=== PATIENT | female | born 1950 | race Caucasian/White ===

== ENCOUNTER → 2017-08-17 13:05 | Outpatient (CLI) | payer MEDICARE, SELFPAY ==
--- NOTE | 2017-08-17 13:09 | CT_ITS ---
STUDY: CT CHEST WITHOUT CONTRAST REASON FOR EXAM: Female, 67 years old. Lung nodule RADIATION DOSAGE (If Supplied By Facility): CTDIvol = ( 11.65 ) mGy, DLP = ( 381.47 ) mGycm TECHNIQUE: Transaxial imaging was performed without the administration of intravenous contrast material. Individualized dose optimization techniques were used for this CT. COMPARISON: None. FINDINGS: The lungs are expanded. There is minimal peripheral interstitial prominence bilaterally. There are nonspecific 2 mm or less peripheral nodular densities in the left lung. Mild right apical scarring.. Normal heart and pericardium. Normal mediastinum. Normal hilar regions. Normal unenhanced pulmonary arteries. Slightly calcified aorta arch and descending thoracic aorta. Mild degenerative vertebral changes. There is no demonstrated abnormality of the visualized upper abdomen. CT/Chest without Contrast IMPRESSION: There are several nonspecific 2 mm or less peripheral nodular densities in the left lung. Mild right apical scarring. Minimal peripheral interstitial prominence. No consolidation. Electronically Signed: Law Tellez DO at 23:18 EST Tel [phone], Service support ,
== END ==
PROVIDERS: Family Provider Internal Medicine; PCP Internal Medicine; Visit Provider Internal Medicine Pulmonary Disease
DX: R91.1 Solitary pulmonary nodule (principal)
CPT/HCPCS: 71250

== ENCOUNTER 2017-09-20 17:37 | Observation (INO) | payer MEDICARE, SELFPAY ==
[2017-09-20] VITALS (8 sets, daily range): BP systolic 139–161; BP diastolic 71–95; PULSE 70–86; RESP 14–20; TEMP 36.6–36.9; O2SAT 93–96; BMI 32.1; BMI 31.8
--- NOTE | 2017-09-20 18:12 | EKG12_ITS ---
Test Reason : CP Blood Pressure : / mmHG Vent. Rate : 082 BPM Atrial Rate : 082 BPM P-R Int : 124 ms QRS Dur : 064 ms QT Int : 348 ms P-R-T Axes : 077 001 065 degrees QTc Int : 406 ms Sinus rhythm with Premature ventricular complexes or Fusion complexes Low voltage QRS Nonspecific ST abnormality Abnormal ECG Confirmed by GAUTAM CLEARY, CRUZ ([id number]), editor trade journal ZHANG TAM ([id number]) on 09/23/2017 1:56:10 PM Referred By: Confirmed By:CRUZ FLOREZ MD
--- NOTE | 2017-09-20 18:15 | ED.DCSUM_ITS ---
- ER Visit Summary Date of Service: 09/20/17 Chief Complaint: Chest heaviness History of Present Illness: The patient is a 67 F with a history of coronary disease and coronary bypass graft. Reports chest heaviness and burning since yesterday. Denies any other associated symptoms. Last stress test was several months ago at [facility] and she says it was normal. Last cardiac catheterization was several years ago. Her staff internist office based only is Dr. Bowman (sp?). Patient reports a history of hypertension and hyperlipidemia. She does take aspirin and Plavix. Physical Examination: Afebrile and vital signs unremarkable except for a blood pressure 161/87. Nontoxic and in no acute distress. Skin appears normal without diaphoresis. Heart regular. Lungs clear. Abdomen soft. Extremities show trace symmetric peripheral edema. Calves soft and supple. Pulses equal. Test Results: EKG showed sinus rhythm at a rate of 82. No sign of acute ischemia or infarction. Labs and chest x-ray pending. Emergency Department Course and Treatment: Placed on a monitor and given aspirin while awaiting results. Workup unremarkable. BNP 112. Patient had no change in her symptoms. Given her cardiac history and chest pain, I called the hospitalist for admission. Treatment Plan: As above Disposition: Admission Impression: 1. Chest pain This note was generated with GIVINGtra[employer] dictation software. It may contain incorrect words, spelling, and punctuation that were not noted in review of the chart prior to signing ED Disposition - Plan for ED Patient: Chief Complaint: Chest Pain Referrals: Amparo Fall [Primary Care Provider] -
[2017-09-20] MEDS: Aspirin 81 MG TAB.CHEW 324 MG PO (18:16)
--- NOTE | 2017-09-20 18:18 | RAD_ITS ---
STUDY: X-RAY CHEST REASON FOR EXAM: Female, 67 years old. Chest pain TECHNIQUE: AP portable COMPARISON: None. FINDINGS: The lungs are clear and expanded. There is no demonstrated pleural abnormality. Normal size heart. Normal mediastinum and magdalene. Normal visualized pulmonary arteries. Normal visualized aortic arch and descending thoracic aorta. Postop change status post median sternotomy and CABG. Normal visualized thoracic spine. Normal visualized ribs, clavicles, and shoulders. There is no demonstrated abnormality of the visualized soft tissue structures of the upper abdomen. No significant change since prior exam RAD/Chest 1 View (Portable) IMPRESSION: No acute cardiopulmonary pathology Electronically Signed: Titus Moyer MD at 18:51 EDT , Service support ,
[2017-09-20 18:42] LABS: Absolute Lymphocyte Count 2.41 X10^3/ul (0.83-4.51); Absolute Neutrophil Count 5.3 X10^3/uL (2.0-7.7); Basophil# 0.03 X10^3/uL; Basophil% 0.4 % (0-1); Eosinophil# 0.09 X10^3/uL; Eosinophils% 1.1 % (0-5); Hematocrit 42.8 % (37-47); Hemoglobin 13.7 g/dl (12.0-15.0); Lymphocyte # 2.41 X10^3/ul (4.0); Lymphocyte % 28.5 % (19-41); Mean Corpuscular Hgb 29.6 pg (27.0-32.0); Mean Corpuscular Volume 92.4 fL (81-99); Mean Platelet Vol. 10.8 fl (6.2-12.0); Monocyte# 0.64 X10^3/uL; Monocyte% 7.6 % (0-10); Neutrophil # 5.28 X10^3/uL (2.7-7.7); Neutrophil % 62.2 % (47-70); Platelet Count 189 K/mm3 (150-450); RBC Distribution Width CV 13.6 % (11.6-14.6); RBC Distribution Width SD 45.4 fl (35.1-43.9); Red Blood Count 4.63 M/mm3 (4.2-5.4); White Blood Count 8.5 K/mm3 (4.4-11.0)
[2017-09-20 18:46] LABS: POSITIVE COUNT NO; POSITIVE DIFFERENTIAL NO; POSITIVE MORPHOLOGY NO
[2017-09-20 19:16] LABS: Anion Gap 8 (5-15); BUN 15 mg/dL (7-18); Calcium,Total 8.5 mg/dL (8.5-10.1); Chloride 106 mmol/L (98-107); Creatinine, Serum 1.15 mg/dL (0.55-1.02); EST Glomerular Filtration Rate 50 mL/min (>60); Est Glom Filt Rate - Afr Amer 60 mL/min (>60); Estimated Creatinine Clearance 34.84 ml/min; Glucose 119 mg/dL (74-106); Potassium 4.1 mmol/L (3.5-5.1); Sodium Level 140 mmol/L (136-145)
--- NOTE | 2017-09-20 20:23 | PCM.HP.STD ---
Problem List (1) Chest pain Status: Acute Qualifiers: Chest pain type: unspecified Qualified Code(s): R07.9 - Chest pain, unspecified (2) CHF (congestive heart failure) Status: Chronic Comment: ef=40% (3) COPD, mild Status: Chronic (4) Dyslipidemia Status: Chronic (5) HTN (hypertension) Status: Chronic (6) CAD (coronary artery disease) Status: Chronic Comment: 1 stent History of Present Illness Date of Admission: 09/20/17 Chief Complaint: chest pain The patient is a 67 year old female patient with a significant past medical history of coronary artery disease presents to the ER with Chest pain. Onset of pain began yesterday and described as a substernal pressure. Today the pain resumed after she was sweeping her kitchen. She took 3 nitro tabs at home and had minimal relief of her pain so she came to the ER. She sees a Dr Bowman for her cardiology at [facility]. She had a negative stress test in his office 6months ago and and has two stents and a history of CABG. Her last heart cath was several years ago. She is unable to walk on a treadmill. Initial Troponin is negative. She will be admitted for observation and further cardiac rule out. Past Medical History Past Medical History (Chronic Problems): Chronic Problems CHF (congestive heart failure) (Chronic) ef=40% COPD, mild (Chronic) Dyslipidemia (Chronic) HTN (hypertension) (Chronic) CAD (coronary artery disease) (Chronic) 1 stent Allergies No Known Allergies Allergy (Verified 03/01/17 19:25) Home Medications: Ambulatory Orders Medication Instructions Recorded Albuterol Inhaler [Ventolin Hfa] 1 puff INHALATION Q4H PRN PRN 03/06/15 Cholecalciferol (VIT D3) [Vitamin 2,000 unit PO DAILY 03/06/15 D3] Clopidogrel Bisulfate [Plavix] 75 mg PO DAILY 03/06/15 Metoprolol(XL)Succ [Toprol Xl 25 mg PO DAILY 03/06/15 (Beta Lorenzo)] Metoprolol(XL)Succ [Toprol Xl 50 mg PO QHS 03/06/15 (Beta Lorenzo)] Nitroglycerin [Nitrostat] 0.4 mg SUBLINGUAL Q5M PRN 03/06/15 Pantoprazole Sodium [Protonix] 40 mg PO DAILY 03/06/15 Tiotropium [place] [Spiriva 18 MCG] 1 puff INHALATION DAILY 03/06/15 traZODone [Desyrel] 50 mg PO QHS 03/06/15 Ascorbic Acid [Vitamin C] 500 mg PO DAILY@0803/01/17 Aspirin [Aspirin, Baby] 81 mg PO DAILY@79903/01/17 Calcium Carbonate [Calcium] 600 mg PO BID 03/01/17 Furosemide [Lasix] 20 mg PO DAILY 03/01/17 Isosorbide Mononitrate [Isosorbide 60 mg PO DAILY 03/01/17 Mononitrate ER] Multivitamin [Multiple Vitamins] 1 each PO DAILY 03/01/17 [place]-3 Fatty Acids/Fish Oil [Fish 1 each PO BID 03/01/17 Oil 1,000 mg Capsule] Potassium Chloride [K-Dur] 20 meq PO PRN 03/01/17 Pravastatin [Pravachol] 40 mg PO QHS 03/01/17 Beclomethasone Diprop Inhaler 2 puff INHALATION BID 09/20/17 [Qvar 80 Mcg Inhaler] Smoking Status: Former smoker - *Family History Paternal History Items: Heart Disease Maternal History Items: Heart Disease Review of Systems Constitutional: Denies: Chills, Fever, Weight Change HEENT: Denies: Head Aches, Sinus Congestion, Sinus Drainage Cardiovascular: Reports: Chest Pain. Denies: Palpitations Respiratory: Denies: Cough, Shortness of breath at rest, Sputum production Gastrointestinal: Denies: Abdominal Pain, Nausea, Vomiting Genitourinary: Denies: Dysuria Musculoskeletal: Denies: Joint Pain, Joint Tenderness Skin: Denies: Rash, Wounds Neurological: Denies: Numbness, Tingling, Focal weakness Psychiatric: Denies: Anxiety, Depression, Homicidal Ideations, Suicidal Ideations Hematologic/ Lymphatic: Denies: Easy Bruising, Easy Bleeding VTE Information - Inpt Only VTE Present on Admission: No VTE Mechan Device Prophylaxis: None VTE Pharm Prophylaxis ordered?: Yes - Physical Exam General: Alert, Oriented x3, Cooperative HEENT: Atraumatic, Normocephalic Neck: Supple Lungs: Clear to auscultation, Normal air movement Cardiovascular: Regular rate, Regular Rhythm, Normal S1, Normal S2, No murmurs Abdomen: Bowel Sounds Present, Soft, Non Tender, Obese Extremities: No edema Skin: No rashes Musculoskeletal: No Tenderness to Palpation of Joints or Extremities Neurological: Neuro grossly intact Psych/Mental Status: Normal Affect, Appropriate Vital Signs Temp Pulse Resp BP Pulse Ox 98.4 F 74 20 H 139/87 H 93 09/20/17 17:37 09/20/17 20:06 09/20/17 20:06 09/20/17 20:06 09/20/17 20:06 Oxygen Flow Rate (L/min) 2 Oxygen Delivery Method Room Air Weight: 170 lb Body Mass Index (BMI) 32.1 Laboratory Tests Past 24 Hrs 09/20/17 09/20/17 09/20/17 17:25 17:25 17:25 WBC 8.5 RBC 4.63 Hgb 13.7 Hct 42.8 MCV 92.4 MCH 29.6 MCHC 32.0 RDW 13.6 RDW Differential 45.4 H Plt Count 189 MPV 10.8 Immature Gran % (Auto) 0.200 Neut % (Auto) 62.2 Lymph % (Auto) 28.5 [place] % (Auto) 7.6 Eos % (Auto) 1.1 Baso % (Auto) 0.4 Absolute Neuts (auto) 5.3 Absolute Lymphs (auto) 2.41 Total Counted Not Reportable Sodium 140 Potassium 4.1 Chloride 106 Carbon Dioxide 26.0 Anion Gap 8 BUN 15 Creatinine 1.15 H Estim Creat Clear Calc 34.84 Est GFR (MDRD) Af Amer 60 Est GFR (MDRD) Non-Af 50 L BUN/Creatinine Ratio 13.0 Glucose 119 H Calcium 8.5 Troponin I < 0.02 B-Natriuretic Peptide 112.0 H Assessment/Plan Chronic Problems CHF (congestive heart failure) (Chronic) ef=40% COPD, mild (Chronic) Dyslipidemia (Chronic) HTN (hypertension) (Chronic) CAD (coronary artery disease) (Chronic) 1 stent Acute Problems - chest pain Plan - admit to PCU for observation - cycle cardiac enzymes - morphine, oxygen , nitro and aspirin per routine - pharmacologic nuclear stress test in am - continue routine medications for chronic stable medical conditions - LMWH for DVT prophylaxis Code Visit OBSV E&M: 44154 Initial observation care L2
[2017-09-20] MEDS: Ipratropium 0.5 MG/2.5 ML SOLUTION INHALATION (22:13)
[2017-09-20] MEDS: Omega-3 Acid Ethyl Esters 1 GM Capsule PO (23:03)
[2017-09-20] MEDS: Pravastatin 40 MG Tablet PO (23:03)
[2017-09-20] MEDS: traZODone 50 MG Tablet PO (23:03)
[2017-09-21] VITALS (7 sets, daily range): BP systolic 112–157; BP diastolic 66–77; PULSE 65–80; RESP 14–18; TEMP 36.6–36.8; O2SAT 94
[2017-09-21 02:13] LABS: Absolute Lymphocyte Count 2.95 X10^3/ul (0.83-4.51); Absolute Neutrophil Count 4.9 X10^3/uL (2.0-7.7); Basophil# 0.03 X10^3/uL; Basophil% 0.3 % (0-1); Eosinophils% 1.2 % (0-5); Hematocrit 39.3 % (37-47); Hemoglobin 13.3 g/dl (12.0-15.0); Lymphocyte # 2.95 X10^3/ul (4.0); Lymphocyte % 34.3 % (19-41); Mean Corp Hgb Conc 33.8 g/gl (32-36); Mean Corpuscular Hgb 30.9 pg (27.0-32.0); Mean Corpuscular Volume 91.4 fL (81-99); Mean Platelet Vol. 10.8 fl (6.2-12.0); Monocyte# 0.59 X10^3/uL; Monocyte% 6.9 % (0-10); Neutrophil # 4.93 X10^3/uL (2.7-7.7); Neutrophil % 57.2 % (47-70); POSITIVE COUNT NO; POSITIVE DIFFERENTIAL NO; POSITIVE MORPHOLOGY NO; Platelet Count 191 K/mm3 (150-450); RBC Distribution Width CV 13.4 % (11.6-14.6); RBC Distribution Width SD 44.1 fl (35.1-43.9); White Blood Count 8.6 K/mm3 (4.4-11.0)
[2017-09-21 02:16] LABS: Partial Thromboplast Time 29.3 Seconds (24.1-36.2); Prothrombin Time (Protime)PT. 13.2 SECONDS (11.7-14.9)
[2017-09-21] MEDS: Clopidogrel Bisulfate 75 MG Tablet PO (05:45)
[2017-09-21] MEDS: Aspirin 81 MG TAB.CHEW PO (05:45)
--- NOTE | 2017-09-21 05:55 | EKG12_ITS ---
Test Reason : AM EKG Blood Pressure : / mmHG Vent. Rate : 066 BPM Atrial Rate : 066 BPM P-R Int : 132 ms QRS Dur : 066 ms QT Int : 404 ms P-R-T Axes : 068 020 049 degrees QTc Int : 423 ms Normal sinus rhythm Low voltage QRS Borderline ECG When compared with ECG of 01-MAR-2017 19:32, Premature ventricular complexes are no longer Present Confirmed by GAUTAM CLEARY, CRUZ ([id number]), acquisition editor ZHANG TAM ([id number]) on 09/23/2017 2:04:26 PM Referred By: JAMAL Confirmed By:CRUZ FLOREZ MD
[2017-09-21 06:25] LABS: AST(SGOT) 21 U/L (15-37); Alanine Aminotransfer ALT/SGPT 23 U/L (13-56); Albumin, Serum 3.1 g/dL (3.2-5.0); Alkaline Phosphatase 88 U/L (45-117); Anion Gap 8 (5-15); BUN 14 mg/dL (7-18); BUN/Creat Ratio 14.2 RATIO (10-20); Calcium,Total 8.5 mg/dL (8.5-10.1); Chloride 106 mmol/L (98-107); Cholesterol 199 mg/dL (200); Creatinine, Serum 0.98 mg/dL (0.55-1.02); EST Glomerular Filtration Rate 60 mL/min (>60); Est Glom Filt Rate - Afr Amer 72 mL/min (>60); Estimated Creatinine Clearance 40.88 ml/min; Globulin 3.1 g/dL (2.2-4.2); Glucose 98 mg/dL (74-106); High Density Lipoprotein 35 mg/dL; Potassium 3.8 mmol/L (3.5-5.1); Protein, Total 6.2 g/dL (6.4-8.2); Sodium Level 144 mmol/L (136-145); Triglycerides 232 mg/dL; Very Low Density Lipoprotein 46 mg/dL (5-40)
[2017-09-21] MEDS: Pantoprazole Sodium 40 MG Tablet PO (09:44)
[2017-09-21] MEDS: Multivitamins,Therapeutic Tablet 1 TABLET PO (09:44)
[2017-09-21] MEDS: Ascorbic Acid 500 MG Tablet PO (09:44)
[2017-09-21] MEDS: Furosemide 20 MG Tablet PO (09:45)
[2017-09-21] MEDS: Omega-3 Acid Ethyl Esters 1 GM Capsule PO (09:45)
[2017-09-21] MEDS: Isosorbide Mononitrate 60 MG Tablet PO (09:45)
[2017-09-21] MEDS: Calcium Carbonate 500 MG Tablet PO (09:45)
[2017-09-21] MEDS: Metoprolol(XL)Succ 25 MG Tablet PO (09:53)
--- NOTE | 2017-09-21 12:46 | STRESSREP ---
Stress Test Report Pharmacologic myocardial perfusion stress test. 67-year-old lady with a history of chest pain. Stress protocol: Resting EKG demonstrates sinus rhythm with rate of 69 bpm normal intervals and noted resting blood pressure is 164/90 mmHg. 0.4 mg regadenoson was infused per usual protocol followed by rapid intravenous saline flush injection continuous EKG monitoring was performed the patient maintained sinus rhythm throughout the recording occasional premature ventricular complexes were noted. The maximum heart rate attained was 103 bpm which was 68% maximum predicted heart rate the maximum workload was 1 metabolic equivalent. At rest there were no ST or T-wave changes noted suggest abnormal flow reserve at peak infusion no ST or T-wave changes were noted suggest abnormal flow reserve. The resting blood pressure is 164/90 final blood pressure 152/80 mmHg. Myocardial perfusion protocol. 11.8 mCi of technetium 99m sestamibi was injected at rest. 0.4 mg of regadenoson was infused per usual protocol peak infusion 33.3 mCi of technetium 99m sestamibi was injected stress images were obtained stress and rest images were reconstructed and compared in the short axis vertical long and horizontal long axis. Gated images were also obtained. Perfusion SPECT analysis: Review of the stress images demonstrate normal uptake of tracer noted in all areas of the myocardium. The resting images similarly demonstrate normal uptake of tracer noted in all areas of the myocardium. No areas of reversibility are noted suggest ischemia no previous infarct is noted. Gated SPECT analysis: The gated ejection fraction is 91%. Conclusion: Normal pharmacologic myocardial perfusion stress test. Preserved ejection fraction.
[2017-09-21] MEDS: Ipratropium 0.5 MG/2.5 ML SOLUTION INHALATION (13:14)
--- NOTE | 2017-09-21 13:32 | DCINST_ITS ---
You will use the following diet at home:: Cardiac Your food should be the consistency of: Regular Your liquids should be the consistency of: Regular/Thin Discharge Activity: Return to Normal Activity Allergies/Adverse Reactions: Allergies No Known Allergies Allergy (Verified 09/20/17 21:19) Medications to take at Discharge Albuterol Inhaler [Ventolin Hfa] 1 puff INHALATION Q4H PRN PRN 03/06/15 Cholecalciferol (VIT D3) [Vitamin D3] 2,000 unit PO DAILY 03/06/15 Clopidogrel Bisulfate [Plavix] 75 mg PO DAILY 03/06/15 Metoprolol(XL)Succ [Toprol Xl (Beta Lorenzo)] 25 mg PO DAILY 03/06/15 Metoprolol(XL)Succ [Toprol Xl (Beta Lorenzo)] 50 mg PO QHS 03/06/15 Nitroglycerin [Nitrostat] 0.4 mg SUBLINGUAL Q5M PRN 03/06/15 Pantoprazole Sodium [Protonix] 40 mg PO DAILY 03/06/15 Tiotropium [place] [Spiriva 18 MCG] 1 puff INHALATION DAILY 03/06/15 traZODone [Desyrel] 50 mg PO QHS 03/06/15 Ascorbic Acid [Vitamin C] 500 mg PO DAILY@0800 03/01/17 Aspirin [Aspirin, Baby] 81 mg PO DAILY@0800 03/01/17 Calcium Carbonate [Calcium] 600 mg PO BID 03/01/17 Furosemide [Lasix] 20 mg PO DAILY 03/01/17 Isosorbide Mononitrate [Isosorbide Mononitrate ER] 60 mg PO DAILY 03/01/17 Multivitamin [Multiple Vitamins] 1 each PO DAILY 03/01/17 [place]-3 Fatty Acids/Fish Oil [Fish Oil 1,000 mg Capsule] 1 each PO BID 03/01/17 Potassium Chloride [K-Dur] 20 meq PO DAILY 03/01/17 Pravastatin [Pravachol] 40 mg PO QHS 03/01/17 Beclomethasone Diprop Inhaler [Qvar 80 Mcg Inhaler] 2 puff INHALATION BID Primary Care Physician: Amparo Fall [Primary Care Provider] - Please follow up with your Primary Care Physician in: 1-2 weeks Proposed Discharge Date: 09/21/17
--- NOTE | 2017-09-21 13:33 | PCM.DC.SUM ---
<Campbell Jean - Last Filed: 09/21/17 13:33> Discharge Date and Diagnosis Date of Admission: 09/20/17 Date of Discharge: 09/21/17 - Primary Discharge Diagnosis Chest pain - musculoskeletal Chronic CHF CAD HTN HLD - Secondary Discharge Diagnosis Chronic Problems CHF (congestive heart failure) (Chronic) ef=40% COPD, mild (Chronic) Dyslipidemia (Chronic) HTN (hypertension) (Chronic) CAD (coronary artery disease) (Chronic) 1 stent Hospital Course and Treatment Imaging Results: 09/21/17 05:55 Nuclear Stress Test - Chemical [NM] AM (NON MEDS) - Negative RAD/Chest 1 View (Portable) IMPRESSION: No acute cardiopulmonary pathology Operations: None Procedures: None Summary of Care Provided: Physical exam on day of discharge: General: Resting comfortably NAD Psych: A/Ox3 normal affect HEENT: PEARRLA AT NC Neck: Supple NT CV: RRR no m/t/r/g/h Resp: CTA Abd: [id number] Soft NT no guarding or rigidity Ext: DP2+= no edema Skin: W/D normal turgor Lymph/Heme: No active bleeding or adenopathy Neuro: CN2-12 intact Hospital course: The patient is a 67 year old F with a hx of CAD, prior CABG, HTN, HLD, chronic CHF, who presented to the ER with a chief complaint of chest pain located in the midsternal region, with minimal relief of nitro x 3 at home. She follows with Dr. Bowman in [facility] for cardiology. She had a negative EKG, CXR, and troponin. She had a mildly elevated BNP but no signs of fluid overload. She was admitted for chest pain work up with cycled troponins, repeat EKG, tele monitoring, and AM stress test. The work up was negative and she was felt to have musculoskeletal pain. She was discharged home in stable condition on her prior home medications and advised to follow up with her PCP in 1-2 weeks. This patient was seen by Campbell Jean PA-C under the supervision of Doctor Fields. [] Discharge Diet: Low fat/ Low Cholesterol, 2000 mg Sodium Diet Discharge Activity: Return to Normal Activity Home Medications: Medications to take at Discharge Albuterol Inhaler [Ventolin Hfa] 1 puff INHALATION Q4H PRN PRN 03/06/15 Cholecalciferol (VIT D3) [Vitamin D3] 2,000 unit PO DAILY 03/06/15 Clopidogrel Bisulfate [Plavix] 75 mg PO DAILY 03/06/15 Metoprolol(XL)Succ [Toprol Xl (Beta Lorenzo)] 25 mg PO DAILY 03/06/15 Metoprolol(XL)Succ [Toprol Xl (Beta Lorenzo)] 50 mg PO QHS 03/06/15 Nitroglycerin [Nitrostat] 0.4 mg SUBLINGUAL Q5M PRN 03/06/15 Pantoprazole Sodium [Protonix] 40 mg PO DAILY 03/06/15 Tiotropium [place] [Spiriva 18 MCG] 1 puff INHALATION DAILY 03/06/15 traZODone [Desyrel] 50 mg PO QHS 03/06/15 Ascorbic Acid [Vitamin C] 500 mg PO DAILY@0800 03/01/17 Aspirin [Aspirin, Baby] 81 mg PO DAILY@0800 03/01/17 Calcium Carbonate [Calcium] 600 mg PO BID 03/01/17 Furosemide [Lasix] 20 mg PO DAILY 03/01/17 Isosorbide Mononitrate [Isosorbide Mononitrate ER] 60 mg PO DAILY 03/01/17 Multivitamin [Multiple Vitamins] 1 each PO DAILY 03/01/17 [place]-3 Fatty Acids/Fish Oil [Fish Oil 1,000 mg Capsule] 1 each PO BID 03/01/17 Potassium Chloride [K-Dur] 20 meq PO DAILY 03/01/17 Pravastatin [Pravachol] 40 mg PO QHS 03/01/17 Beclomethasone Diprop Inhaler [Qvar 80 Mcg Inhaler] 2 puff INHALATION BID 09/20/17 Primary Care Physician: Amparo Fall [Primary Care Provider] - Please follow up with your Primary Care Physician in: 1-2 weeks Disposition: Home Minutes spent on discharge:: 35 Patient Condition:: Stable Medical Necessity - Tobacco Use Smoking Status: Former smoker Meaningful Use Info Meaningful Use Diagnoses (Choose all that apply): None applicable <Fred Fields - Last Filed: 09/21/17 14:11> Discharge Date and Diagnosis - Secondary Discharge Diagnosis Chronic Problems CHF (congestive heart failure) (Chronic) ef=40% COPD, mild (Chronic) Dyslipidemia (Chronic) HTN (hypertension) (Chronic) CAD (coronary artery disease) (Chronic) 1 stent Hospital Course and Treatment Imaging Results: 09/21/17 05:55 Nuclear Stress Test - Chemical [NM] AM (NON MEDS) Summary of Care Provided: The patient is a 67 year old F with multiple comorbidities including CAD status post previous CABG hypertension dyslipidemia chronic systolic congestive heart failure who presented with chest pain. Patient was placed in a monitored bed [place] was ruled out with serial cardiac enzymes underwent a nuclear stress test which is negative for stress-induced ischemia Patient was seen and examined and also seen in consultation with Campbell Jean PA-C hospital course: is as elicited above total time spent on discharge 35 minutes Code Visit OBSV E&M: [id number] Observation care discharge
--- NOTE | 2017-09-21 13:41 | DS.PCM_ITS ---
<Campbell Jean - Last Filed: 09/21/17 13:33> Discharge Date and Diagnosis Date of Admission: 09/20/17 Date of Discharge: 09/21/17 - Primary Discharge Diagnosis Chest pain - musculoskeletal Chronic CHF CAD HTN HLD - Secondary Discharge Diagnosis Chronic Problems CHF (congestive heart failure) (Chronic) ef=40% COPD, mild (Chronic) Dyslipidemia (Chronic) HTN (hypertension) (Chronic) CAD (coronary artery disease) (Chronic) 1 stent Hospital Course and Treatment Imaging Results: 09/21/17 05:55 Nuclear Stress Test - Chemical [NM] AM (NON MEDS) - Negative RAD/Chest 1 View (Portable) IMPRESSION: No acute cardiopulmonary pathology Operations: None Procedures: None Summary of Care Provided: Physical exam on day of discharge: General: Resting comfortably NAD Psych: A/Ox3 normal affect HEENT: [place] AT NC Neck: Supple NT CV: RRR no m/t/r/g/h Resp: CTA Abd: [id number] Soft NT no guarding or rigidity Ext: DP2+= no edema Skin: W/D normal turgor Lymph/Heme: No active bleeding or adenopathy Neuro: CN2-12 intact Hospital course: The patient is a 67 year old F with a hx of CAD, prior CABG, HTN, HLD, chronic CHF, who presented to the ER with a chief complaint of chest pain located in the midsternal region, with minimal relief of nitro x 3 at home. She follows with Dr. Bowman in [facility] for cardiology. She had a negative EKG, CXR, and troponin. She had a mildly elevated BNP but no signs of fluid overload. She was admitted for chest pain work up with cycled troponins, repeat EKG, tele monitoring, and AM stress test. The work up was negative and she was felt to have musculoskeletal pain. She was discharged home in stable condition on her prior home medications and advised to follow up with her PCP in 1-2 weeks. This patient was seen by Campbell Jean PA-C under the supervision of Doctor Fields. [] Discharge Diet: Low fat/ Low Cholesterol, 2000 mg Sodium Diet Discharge Activity: Return to Normal Activity Home Medications: Medications to take at Discharge Albuterol Inhaler [Ventolin Hfa] 1 puff INHALATION Q4H PRN PRN 03/06/15 Cholecalciferol (VIT D3) [Vitamin D3] 2,000 unit PO DAILY 03/06/15 Clopidogrel Bisulfate [Plavix] 75 mg PO DAILY 03/06/15 Metoprolol(XL)Succ [Toprol Xl (Beta Lorenzo)] 25 mg PO DAILY 03/06/15 Metoprolol(XL)Succ [Toprol Xl (Beta Lorenzo)] 50 mg PO QHS 03/06/15 Nitroglycerin [Nitrostat] 0.4 mg SUBLINGUAL Q5M PRN 03/06/15 Pantoprazole Sodium [Protonix] 40 mg PO DAILY 03/06/15 Tiotropium [place] [Spiriva 18 MCG] 1 puff INHALATION DAILY 03/06/15 traZODone [Desyrel] 50 mg PO QHS 03/06/15 Ascorbic Acid [Vitamin C] 500 mg PO DAILY@0800 03/01/17 Aspirin [Aspirin, Baby] 81 mg PO DAILY@0800 03/01/17 Calcium Carbonate [Calcium] 600 mg PO BID 03/01/17 Furosemide [Lasix] 20 mg PO DAILY 03/01/17 Isosorbide Mononitrate [Isosorbide Mononitrate ER] 60 mg PO DAILY 03/01/17 Multivitamin [Multiple Vitamins] 1 each PO DAILY 03/01/17 [place]-3 Fatty Acids/Fish Oil [Fish Oil 1,000 mg Capsule] 1 each PO BID 03/01/17 Potassium Chloride [K-Dur] 20 meq PO DAILY 03/01/17 Pravastatin [Pravachol] 40 mg PO QHS 03/01/17 Beclomethasone Diprop Inhaler [Qvar 80 Mcg Inhaler] 2 puff INHALATION BID Primary Care Physician: Amparo Fall [Primary Care Provider] - Please follow up with your Primary Care Physician in: 1-2 weeks Disposition: Home Minutes spent on discharge:: 35 Patient Condition:: Stable Medical Necessity - Tobacco Use Smoking Status: Former smoker Meaningful Use Info Meaningful Use Diagnoses (Choose all that apply): None applicable <Fred Fields - Last Filed: 09/21/17 14:11> Discharge Date and Diagnosis - Secondary Discharge Diagnosis Chronic Problems CHF (congestive heart failure) (Chronic) ef=40% COPD, mild (Chronic) Dyslipidemia (Chronic) HTN (hypertension) (Chronic) CAD (coronary artery disease) (Chronic) 1 stent Hospital Course and Treatment Imaging Results: 09/21/17 05:55 Nuclear Stress Test - Chemical [NM] AM (NON MEDS) Summary of Care Provided: The patient is a 67 year old F with multiple comorbidities including CAD status post previous CABG hypertension dyslipidemia chronic systolic congestive heart failure who presented with chest pain. Patient was placed in a monitored bed [place] was ruled out with serial cardiac enzymes underwent a nuclear stress test which is negative for stress-induced ischemia Patient was seen and examined and also seen in consultation with Campbell Martinez hospital course: is as elicited above total time spent on discharge 35 minutes Code Visit OBSV E&M: [id number] Observation care discharge
== END 2017-09-21 13:32 | disposition home or self-care (01) ==
LOC: ED 18:37 → PCU 20:40
PROVIDERS: Admitting Provider Family Medicine; Emergency Provider Emergency Medicine; Family Provider Internal Medicine; PCP Internal Medicine; Visit Provider Internal Medicine
DX: R07.89 Other chest pain (principal); I25.10 Atherosclerotic heart disease of native coronary artery without angina pectoris; E78.5 Hyperlipidemia, unspecified; Z95.1 Presence of aortocoronary bypass graft; Z79.899 Other long term (current) drug therapy; Z79.82 Long term (current) use of aspirin; Z79.02 Long term (current) use of antithrombotics/antiplatelets; J44.9 Chronic obstructive pulmonary disease, unspecified; I11.0 Hypertensive heart disease with heart failure; I50.22 Chronic systolic (congestive) heart failure; Z87.891 Personal history of nicotine dependence
CPT/HCPCS: 36415; 71045; 78452; 80048; 80053; 80061; 83880; 84484; 85025; 85610; 85730; 93005; 93017; 94640; 99218; 99285; A9500; A4216; G0378; J2785

== ENCOUNTER 2018-08-01 19:30 | Observation (INO) | payer MEDICARE, SELFPAY ==
[2018-08-01 19:31] VITALS: BP 163/99; PULSE 84; RESP 20; TEMP 36.7; O2SAT 96; BMI 31.4
--- NOTE | 2018-08-01 19:56 | EKG12_ITS ---
Test Reason : CHEST PRESSURE Blood Pressure : / mmHG Vent. Rate : 083 BPM Atrial Rate : 083 BPM P-R Int : 128 ms QRS Dur : 070 ms QT Int : 358 ms P-R-T Axes : 072 -03 057 degrees QTc Int : 420 ms Normal sinus rhythm Low voltage QRS Nonspecific ST abnormality Abnormal ECG Confirmed by TIARA CLEARY, ANGELICA ([id number]), editor map ZHANG TAM ([id number]) on 08/03/2018 9:54:43 AM Referred By: JAILYN Confirmed By:ANGELICA MENJIVAR MD
--- NOTE | 2018-08-01 20:05 | RAD_ITS ---
STUDY: X-RAY CHEST REASON FOR EXAM: Female, 68 years old. Shortness of breath. Chest pressure. TECHNIQUE: Single AP portable view of the chest. COMPARISON: September 20, 2017 FINDINGS: There are monitoring devices. The lungs are clear and expanded. There is no demonstrated pleural abnormality. Sternal cerclage wires are present from a prior sternotomy. Normal mediastinum and magdalene. Normal visualized pulmonary arteries. Normal visualized aortic arch and descending thoracic aorta. Normal visualized thoracic spine. Normal visualized ribs, clavicles, and shoulders. There is no demonstrated abnormality of the visualized soft tissue structures of the upper abdomen. RAD/Chest 1 View (Portable) IMPRESSION: Degenerative changes, as described above. No demonstrated acute cardiopulmonary process. Electronically Signed: Osito Perez MD at 21:09 EST , Service support ,
[2018-08-01] MEDS: Aspirin 81 MG TAB.CHEW 243 MG PO (20:06)
[2018-08-01 20:15] LABS: Absolute Lymphocyte Count 2.89 X10^3/ul (0.83-4.51); Absolute Neutrophil Count 5.1 X10^3/uL (2.0-7.7); Basophil# 0.02 X10^3/uL; Basophil% 0.2 % (0-1); Eosinophils% 1.1 % (0-5); Hematocrit 42.6 % (37-47); Hemoglobin 13.5 g/dl (12.0-15.0); Lymphocyte # 2.89 X10^3/ul (4.0); Lymphocyte % 32.8 % (19-41); Mean Corp Hgb Conc 31.7 g/gl (32-36); Mean Corpuscular Hgb 29.1 pg (27.0-32.0); Mean Corpuscular Volume 91.8 fL (81-99); Monocyte# 0.68 X10^3/uL; Monocyte% 7.7 % (0-10); Neutrophil # 5.11 X10^3/uL (2.7-7.7); Platelet Count 185 K/mm3 (150-450); RBC Distribution Width CV 13.8 % (11.6-14.6); RBC Distribution Width SD 45.7 fl (35.1-43.9); Red Blood Count 4.64 M/mm3 (4.2-5.4); White Blood Count 8.8 K/mm3 (4.4-11.0)
[2018-08-01 20:17] LABS: POSITIVE COUNT NO; POSITIVE DIFFERENTIAL NO; POSITIVE MORPHOLOGY NO
[2018-08-01 20:25] LABS: Anion Gap 7 (5-15); BUN 19 mg/dL (7-18); BUN/Creat Ratio 13.7 RATIO (10-20); Chloride 106 mmol/L (98-107); Creatinine, Serum 1.39 mg/dL (0.55-1.02); EST Glomerular Filtration Rate 40 mL/min (>60); Est Glom Filt Rate - Afr Amer 48 mL/min (>60); Estimated Creatinine Clearance 28.42 ml/min; Glucose 102 mg/dL (74-106); Potassium 3.7 mmol/L (3.5-5.1); Sodium Level 142 mmol/L (136-145)
[2018-08-01 20:28] VITALS: PULSE 96; RESP 20
[2018-08-01] MEDS: Ipratropium/Albuterol Sulfate 3 ML AMPUL.NEB INHALATION (20:28)
--- NOTE | 2018-08-01 20:38 | ED.RN ---
LAB CALLS WITH CRITICAL RESULT, D-DIMER 1.70, DR. GLASER MADE AWARE.
--- NOTE | 2018-08-01 20:49 | CT_ITS ---
STUDY: CTA CHEST REASON FOR EXAM: Female, 68 years old. Shortness of breath RADIATION DOSAGE (If Supplied By Facility): CTDIvol = ( 13.20 ) mGy, DLP = ( 626.50 ) mGycm TECHNIQUE: The examination was performed with the intravenous administration of Isovue 370 100 IV. Post-processing of the angiographic images was performed, with multiplanar reformation and 3D reconstruction. Individualized dose optimization techniques were used for this CT. COMPARISON: Chest x-ray. FINDINGS: Normal enhancement of the main pulmonary artery and right and left pulmonary arteries. Normal enhancement of the bilateral peripheral pulmonary arteries. There is no demonstrated pulmonary embolism. There is atherosclerotic calcification of the aortic arch with tortuosity. There is no demonstrated aortic dissection. Sternal cerclage wires are present from a prior sternotomy. There are calcifications of the coronary arteries. Normal mediastinum. Normal hilar regions. Normal visualized trachea and bronchi. The lungs are well expanded. Normal pulmonary parenchyma. Normal pleura. Normal chest wall structures. There are degenerative changes of thoracic spine. Normal visualized upper abdomen. CT/CTA Chest W/WO Contrast IMPRESSION: CTA chest examination, without a demonstrated pulmonary embolism or arterial dissection. Electronically Signed: Osito Perez MD at 22:31 EST , Service support ,
[2018-08-01 20:54] LABS: BNP,B-Type NATRIURETIC PEPTIDE 143.4 pg/mL (0-100)
[2018-08-01 22:45] VITALS: BP 127/72; PULSE 86; RESP 16; O2SAT 94
--- NOTE | 2018-08-01 22:47 | ED.DCSUM_ITS ---
- ER Visit Summary Date of Service: 08/01/18 Chief Complaint: Chest pain and shortness of breath History of Present Illness: The patient is a 68 F with shortness of breath for the past 3 days, worse with exertion. She denies any difficulty lying down flat. She reports chest heaviness that started this morning it feels like someone sitting on her chest. She reports a chronic cough that is unchanged from baseline. No other URI symptoms. Past history significant for coronary disease, CHF, COPD, high cholesterol, hypertension, prior cardiac bypass surgery and stent. Physical Examination: Vital signs significant for blood pressure 163/99, otherwise unremarkable. Patient sitting upright in bed no acute distress. She is alert and talkative. Head neck examination unremarkable. Heart is regular rate and rhythm. Lungs sounds with scant expiratory wheeze. Abdomen is soft nontender. Lower extremity examination was 2+ edema that is symmetric. Test Results: Portable chest x-ray shows degenerative changes with no evidence of acute process. EKG is sinus at [address] change in V5 and V6. CBC is unremarkable. Chemistry studies significant for creatinine 1.39 which is slightly above her baseline. Troponin is less than 0.015. BNP is 143. D-dimer is elevated at 1.70. CTA of the chest is obtained and shows no evidence of PE or dissection. No acute lung disease noted. Emergency Department Course and Treatment: Patient received aspirin along with a DuoNeb. On repeat evaluation she is resting comfortably. At this time I recommended hospitalization for cycling of cardiac enzymes and further cardiac evaluation. She voices understanding and agreement. Treatment Plan: [] Disposition: Admit Impression: Chest pain with dyspnea This note was generated with [employer] dictation software. It may contain incorrect words, spelling, and punctuation that were not noted in review of the chart prior to signing ED Disposition - Plan for ED Patient: Referrals: Amparo Fall [Primary Care Provider] -
--- NOTE | 2018-08-01 22:54 | PCM.HP.STD ---
Problem List (1) Chest pain Status: Acute Qualifiers: Chest pain type: unspecified Qualified Code(s): R07.9 - Chest pain, unspecified (2) CAD (coronary artery disease) Status: Chronic Comment: 1 stent History of Present Illness Date of Admission: 08/01/18 Chief Complaint: chest pain The patient is a 68 year old F with a significant history of COPD; CAD status post CABG and coronary stent; hypertension and hyperlipidemia who presented with excruciating substernal nonradiating constant chest pain that started 3-4 hours prior to presentation. Her chest pain started at rest. She described her chest pain as pressure. Her chest pain started about an hour to 1 hour and a half after eating. Patient denies any aggravating or alleviating factors. She took 3 nitroglycerin tablets at home without any real relief. Also patient reports a 3-4-day history of shortness of breath at rest. At the emergency department patient was given 3 baby aspirin and a DuoNeb. At the emergency department EKG was not remarkable. Troponin was negative. Her d-dimer was elevated but follow-up CTPA was unremarkable. She reported that her brother from a massive heart attack when he was in his 30s; and her nephew from a massive heart attack in his 40s. Past Medical History Past Medical History (Chronic Problems): Chronic Problems CHF (congestive heart failure) (Chronic) ef=40% COPD, mild (Chronic) Dyslipidemia (Chronic) HTN (hypertension) (Chronic) CAD (coronary artery disease) (Chronic) 1 stent Allergies No Known Allergies Allergy (Verified 08/01/18 19:42) Home Medications: Ambulatory Orders Medication Instructions Recorded Albuterol Inhaler [Ventolin Hfa] 1 puff INHALATION Q4H PRN PRN 03/06/15 Cholecalciferol (VIT D3) [Vitamin 2,000 unit PO DAILY 03/06/15 D3] Clopidogrel Bisulfate [Plavix] 75 mg PO DAILY 03/06/15 Metoprolol(XL)Succ [Toprol Xl 25 mg PO DAILY 03/06/15 (Beta Lorenzo)] Metoprolol(XL)Succ [Toprol Xl 50 mg PO QHS 03/06/15 (Beta Lorenzo)] Nitroglycerin [Nitrostat] 0.4 mg SUBLINGUAL Q5M PRN 03/06/15 Pantoprazole Sodium [Protonix] 40 mg PO 199903/06/15 Tiotropium [place] [Spiriva 18 MCG] 1 puff INHALATION DAILY 03/06/15 traZODone [Desyrel] 50 mg PO QHS 03/06/15 Ascorbic Acid [Vitamin C] 500 mg PO DAILY@0803/01/17 Aspirin [Aspirin, Baby] 81 mg PO DAILY@0803/01/17 Calcium Carbonate [Calcium] 600 mg PO BID 03/01/17 Furosemide [Lasix] 20 mg PO DAILY 03/01/17 Isosorbide Mononitrate [Isosorbide 60 mg PO DAILY 03/01/17 Mononitrate ER] Multivitamin [Multiple Vitamins] 1 each PO DAILY 03/01/17 [place]-3 Fatty Acids/Fish Oil [Fish 1 each PO BID 03/01/17 Oil 1,000 mg Capsule] Potassium Chloride [K-Dur] 20 meq PO DAILY 03/01/17 Pravastatin [Pravachol] 40 mg PO QHS 03/01/17 Beclomethasone Diprop Inhaler 2 puff INHALATION BID 09/20/17 [Qvar 80 Mcg Inhaler] Lisinopril 20 mg PO DAILY 08/01/18 Surgical History: appendectomy, cataract, coronary bypass surgery Lives: Spouse/ Significant Other Smoking Status: Former smoker - *Family History Paternal History Items: Heart Disease Maternal History Items: Heart Disease Review of Systems Constitutional: Denies: Chills, Fever, Weight Change HEENT: Denies: Head Aches, Sinus Congestion, Sinus Drainage Cardiovascular: Reports: Chest Pain. Denies: Palpitations Respiratory: Reports: Shortness of Breath. Denies: Cough Gastrointestinal: Denies: Abdominal Pain, Nausea, Vomiting Genitourinary: Denies: Dysuria Musculoskeletal: Denies: Joint Pain, Joint Tenderness Skin: Denies: Rash, Wounds Neurological: Denies: Numbness, Tingling, Focal weakness Psychiatric: Denies: Anxiety, Depression, Homicidal Ideations, Suicidal Ideations Hematologic/ Lymphatic: Denies: Easy Bruising, Easy Bleeding VTE Information - Inpt Only VTE Present on Admission: No VTE Mechan Device Prophylaxis: None VTE Pharm Prophylaxis ordered?: Yes - Physical Exam General: Alert, Oriented x3, Cooperative HEENT: Atraumatic, Normocephalic Neck: Supple, No JVD, Negative Carotid Bruits Lungs: Clear to auscultation, Normal air movement Cardiovascular: Regular rate, No murmurs Abdomen: Bowel Sounds Present, Soft, Non Tender Extremities: No edema, Capillary Refill Less than 3 Seconds Skin: No rashes, No breakdown Musculoskeletal: No Tenderness to Palpation of Joints or Extremities Neurological: Neuro grossly intact Psych/Mental Status: Normal Affect, Appropriate Vital Signs Temp Pulse Resp BP Pulse Ox 98.1 F 86 16 127/72 H 94 08/01/18 19:31 08/01/18 22:45 08/01/18 22:45 08/01/18 22:45 08/01/18 22:45 Oxygen Delivery Method Room Air Weight: 75.296 kg Body Mass Index (BMI) 31.4 Laboratory Tests Past 24 Hrs 08/01/18 08/01/18 08/01/18 19:45 19:45 19:45 WBC 8.8 RBC 4.64 Hgb 13.5 Hct 42.6 MCV 91.8 MCH 29.1 MCHC 31.7 L RDW 13.8 RDW Differential 45.7 H Plt Count 185 MPV 11.0 Immature Gran % (Auto) 0.200 Neut % (Auto) 58.0 Lymph % (Auto) 32.8 Kendall % (Auto) 7.7 Eos % (Auto) 1.1 Baso % (Auto) 0.2 Absolute Neuts (auto) 5.1 Absolute Lymphs (auto) 2.89 Total Counted Not Reportable D-Dimer Quant (PE/DVT) 1.70 H* Sodium 142 Potassium 3.7 Chloride 106 Carbon Dioxide 29.0 Anion Gap 7 BUN 19 H Creatinine 1.39 H Estim Creat Clear Calc 28.42 Est GFR (MDRD) Af Amer 48 L Est GFR (MDRD) Non-Af 40 L BUN/Creatinine Ratio 13.7 Glucose 102 Calcium 9.0 Troponin I < 0.015 B-Natriuretic Peptide 08/01/18 19:45 WBC RBC Hgb Hct MCV MCH MCHC RDW RDW Differential Plt Count MPV Immature Gran % (Auto) Neut % (Auto) Lymph % (Auto) Kendall % (Auto) Eos % (Auto) Baso % (Auto) Absolute Neuts (auto) Absolute Lymphs (auto) Total Counted D-Dimer Quant (PE/DVT) Sodium Potassium Chloride Carbon Dioxide Anion Gap BUN Creatinine Estim Creat Clear Calc Est GFR (MDRD) Af Amer Est GFR (MDRD) Non-Af BUN/Creatinine Ratio Glucose Calcium Troponin I B-Natriuretic Peptide 143.4 H Assessment/Plan All Active Problems Chest pain (Acute) The patient is a 68 year old F with a significant history of COPD; CAD status post CABG and coronary stent; hypertension and hyperlipidemia who presented with chest pain and shortness of breath. Chest pain Admit to a monitored bed on PCU CXR independently reviewed confirms no acute cardiopulmonary process. EKG independently reviewed showed no remarkable ST or T wave abnormalities. Review of stress test in September 2017 showed an unremarkable test. ASA 81 mg p.o. daily Plavix continued SL NTG 0.4 mg prn as needed for chest pain Morphine as needed for pain We will check lipid panel. Hold home pravastatin. Lipitor 80 mg x1 dose ordered. Serial cardiac enzymes Stat EKG as needed for chest pain Imdur and metoprolol continued. Hold lisinopril because of ARGENIS. Chemical Stress test in the AM if the cardiac enzymes are negative. Probable mild COPD exacerbation. Scheduled DuoNeb and as needed albuterol ordered. Hypertension On admission blood pressure was not within goal. Metoprolol and Imdur continued Lisinopril held secondary to ARGENIS. Hydralazine as needed ordered Trend blood pressure and adjust blood pressure medications. ARGENIS On admission her creatinine was 1.39 Review of old records showed a baseline creatinine of about 1.0. Gentle IV hydration. Avoid nephrotoxic's. Lisinopril held. Trend BMP. DVT prophylaxis Heparin ordered. Code Visit OBSV E&M: 19960 Initial observation care L3
[2018-08-02] VITALS (14 sets, daily range): BP systolic 101–149; BP diastolic 64–98; PULSE 65–97; RESP 16–20; TEMP 36.4–36.7; O2SAT 95–98; BMI 31.2; BMI 31.3
--- NOTE | 2018-08-02 00:12 | EKG12_ITS ---
Test Reason : AM EKG Blood Pressure : / mmHG Vent. Rate : 066 BPM Atrial Rate : 066 BPM P-R Int : 132 ms QRS Dur : 070 ms QT Int : 418 ms P-R-T Axes : 069 010 062 degrees QTc Int : 438 ms Normal sinus rhythm Low voltage QRS Nonspecific T wave abnormality Abnormal ECG Confirmed by TIARA CLEARY, ANGELICA ([id number]), technical writer and editor ZHANG TAM ([id number]) on 08/03/2018 10:22:34 AM Referred By: NOAH Confirmed By:ANGELICA MENJIVAR MD
[2018-08-02] MEDS: 0.9% Normal Saline 1,000 ML 100 ML IV (00:48)
[2018-08-02] MEDS: Atorvastatin Calcium 80 MG Tablet PO (00:48)
[2018-08-02] MEDS: Pantoprazole Sodium 40 MG Tablet PO (00:48)
[2018-08-02] MEDS: traZODone 50 MG Tablet PO (00:49)
[2018-08-02] MEDS: Metoprolol(XL)Succ 50 MG Tablet PO (00:49)
[2018-08-02] MEDS: 0.9% NaCl Peripheral Flush Adult/Peds IV ×2 (00:50→05:55)
[2018-08-02 03:25] LABS: Hematocrit 36.9 % (37-47); Hemoglobin 11.8 g/dl (12.0-15.0); Mean Corpuscular Volume 90.7 fL (81-99); Mean Platelet Vol. 10.6 fl (6.2-12.0); Platelet Count 144 K/mm3 (150-450); RBC Distribution Width CV 13.7 % (11.6-14.6); Red Blood Count 4.07 M/mm3 (4.2-5.4)
[2018-08-02 03:26] LABS: Scan Indicated on CBC? Y/N NO
[2018-08-02 03:29] LABS: Prothrombin Time (Protime)PT. 13.6 SECONDS (11.7-14.9)
[2018-08-02 03:30] LABS: Partial Thromboplast Time 31.5 Seconds (24.1-36.2)
[2018-08-02 03:40] LABS: Anion Gap 7 (5-15); BUN 17 mg/dL (7-18); BUN/Creat Ratio 14.8 RATIO (10-20); Calcium,Total 8.2 mg/dL (8.5-10.1); Chloride 109 mmol/L (98-107); Cholesterol 135 mg/dL (200); Creatinine, Serum 1.15 mg/dL (0.55-1.02); EST Glomerular Filtration Rate 50 mL/min (>60); Est Glom Filt Rate - Afr Amer 60 mL/min (>60); Estimated Creatinine Clearance 34.35 ml/min; Glucose 90 mg/dL (74-106); High Density Lipoprotein 38 mg/dL; Potassium 3.6 mmol/L (3.5-5.1); Sodium Level 146 mmol/L (136-145); Triglycerides 109 mg/dL; Very Low Density Lipoprotein 22 mg/dL (5-40)
--- NOTE | 2018-08-02 05:55 | EKG12_ITS ---
Test Reason : CP Blood Pressure : / mmHG Vent. Rate : 091 BPM Atrial Rate : 091 BPM P-R Int : 130 ms QRS Dur : 068 ms QT Int : 366 ms P-R-T Axes : 081 029 062 degrees QTc Int : 450 ms Sinus rhythm with frequent Premature ventricular complexes Low voltage QRS Borderline ECG Confirmed by TIARA CLEARY, ANGELICA ([id number]), editor index ZHANG TAM ([id number]) on 08/03/2018 10:22:54 AM Referred By: NOAH Confirmed By:ANGELICA MENJIVAR MD
[2018-08-02] MEDS: Aspirin 81 MG TAB.CHEW PO (05:56)
[2018-08-02] MEDS: Clopidogrel Bisulfate 75 MG Tablet PO (05:56)
[2018-08-02] MEDS: Budesonide Respules 0.5 MG/2 ML AMPUL.NEB. INHALATION (06:39)
[2018-08-02] MEDS: Ipratropium/Albuterol Sulfate 3 ML AMPUL.NEB INHALATION ×3 (06:39→14:56)
--- NOTE | 2018-08-02 08:20 | NURSING ---
to nuclear med for stress test, off monitor and in WC.
--- NOTE | 2018-08-02 08:52 | PCM.PN.HOSP ---
Subjective: Patient was seen and examined. She complains of substernal chest pain associated with shortness of breath ongoing since the day of admission. Denies any dizziness or palpitation or diaphoresis or leg swelling or PND or orthopnea. Rest of 12 point review of systems was negative except for the above. Patient is scheduled for stress test this morning. Vitals/I&O's: Vital Signs Temp Pulse Resp BP Pulse Ox 97.7 F L 65 18 111/64 96 08/02/18 03:14 08/02/18 06:41 08/02/18 06:41 08/02/18 03:14 08/02/18 03:14 Oxygen Delivery Method Room Air Weight: 76.3 kg Body Mass Index (BMI) 31.2 Intake and Output for Last 24 Hours 07/31/18 08/01/18 08/02/18 23:59 23:59 23:59 Intake Total 625 / 625 Balance 625 / 625 General: Alert, Oriented x3, Cooperative, No apparent distress HEENT: Atraumatic, PERRLA, EOMI, Normocephalic Oral: Moist Mucosa Neck: Supple Lungs: Clear to auscultation, Normal air movement Cardiovascular: Regular rate, Regular Rhythm, Normal S1, Normal S2, No murmurs Abdomen: Bowel Sounds Present, Soft, Non Tender, Non-Distended, No Hepato-splenomegaly Extremities: Edema - Trace to +1 pedal edema Skin: No rashes, No breakdown Musculoskeletal: No Tenderness to Palpation of Joints or Extremities Lymphatic: No Cervical, Supraclavicular, or Inguinal Adenopathy Neurological: Cranial nerves II-XII grossly intact, Neuro grossly intact Psych/Mental Status: Normal Affect, Appropriate Laboratory Results 08/01/18 19:45: WBC 8.8, RBC 4.64, Hgb 13.5, Hct 42.6, MCV 91.8, MCH 29.1, MCHC 31.7 L, RDW 13.8, RDW Differential 45.7 H, Plt Count 185, MPV 11.0, Immature Gran % (Auto) 0.200, Neut % (Auto) 58.0, Lymph % (Auto) 32.8, Gordon % (Auto) 7.7, Eos % (Auto) 1.1, Baso % (Auto) 0.2, Absolute Neuts (auto) 5.1, Absolute Lymphs (auto) 2.89, Total Counted Not Reportable 08/01/18 19:45: Sodium 142, Potassium 3.7, Chloride 106, Carbon Dioxide 29.0, Anion Gap 7, BUN 19 H, Creatinine 1.39 H, Estim Creat Clear Calc 28.42, Est GFR (MDRD) Af Amer 48 L, Est GFR (MDRD) Non-Af 40 L, BUN/Creatinine Ratio 13.7, Glucose 102, Calcium 9.0, Troponin I < 0.015 08/01/18 19:45: D-Dimer Quant (PE/DVT) 1.70 H* 08/01/18 19:45: B-Natriuretic Peptide 143.4 H 08/02/18 00:15: Troponin I < 0.015 08/02/18 03:10: Troponin I < 0.015 08/02/18 03:10: PT 13.6, INR 1.0, APTT 31.5 08/02/18 03:10: Sodium 146 H, Potassium 3.6, Chloride 109 H, Carbon Dioxide 30.0, Anion Gap 7, BUN 17, Creatinine 1.15 H, Estim Creat Clear Calc 34.35, Est GFR (MDRD) Af Amer 60, Est GFR (MDRD) Non-Af 50 L, BUN/Creatinine Ratio 14.8, Glucose 90, Calcium 8.2 L, Triglycerides 109, Cholesterol 135, LDL Cholesterol 75, VLDL Cholesterol 22, HDL Cholesterol 38 L 08/02/18 03:10: WBC 10.0, RBC 4.07 L, Hgb 11.8 L, Hct 36.9 L, MCV 90.7, MCH 29.0, MCHC 32.0, RDW 13.7, RDW Differential 45.0 H, Plt Count 144 L, MPV 10.6 08/02/18 05:55: Troponin I 0.016 Current Medications Albuterol Sulfate (Ventolin Aerosols) 2.5 mg INHALATION Q2H PRN PRN PRN Reason: sob/wheezing Albuterol/Ipratropium (Duoneb) 3 ml INHALATION Q4HWA.RT NUBIA Last Admin: 08/02/18 06:39 Dose: 3 ml Ascorbic Acid (Vitamin C) 500 mg PO DAILY@0800 [facility] Aspirin (Aspirin, Baby) 81 mg PO DAILY@0800 [facility] Last Admin: 08/02/18 05:56 Dose: 81 mg Atorvastatin Calcium (Lipitor) 80 mg PO X1 ONE Stop: 08/02/18 23:51 Last Admin: 08/02/18 00:48 Dose: 80 mg Bisacodyl (Dulcolax) 5 mg PO DAILY PRN PRN PRN Reason: Constipation Budesonide (Pulmicort Aerosol) 0.5 mg INHALATION Q12H.RT [facility] Last Admin: 08/02/18 06:39 Dose: 0.5 mg Calcium Carbonate (Os-Prakash 500) 500 mg PO BID [facility] Cholecalciferol (Vitamin D) 2,000 unit PO DAILY [facility] Clopidogrel Bisulfate (Plavix) 75 mg PO DAILY [facility] Last Admin: 08/02/18 05:56 Dose: 75 mg Heparin Sodium (Porcine) (Heparin Na) 5,000 unit SC Q8 [facility] Last Admin: 08/02/18 05:12 Dose: Not Given Hydralazine HCl (Apresoline Iv) 5 mg IV Q4H PRN PRN PRN Reason: SBP > 160 Sodium Chloride () 1,000 mls @ 100 mls/hr IV .Q10H [facility] Stop: 08/02/18 10:11 Last Admin: 08/02/18 00:48 Dose: 100 mls/hr Sodium Chloride () 250 mls @ 15 mls/hr IV .[id number] PRN PRN Reason: SALINE FLUSH Isosorbide Mononitrate (Imdur) 60 mg PO DAILY [facility] Magnesium Hydroxide (Milk Of Magnesia) 30 ml PO DAILY PRN PRN Reason: Constipation Metoprolol Succinate (Toprol Xl (Beta Lorenzo)) 25 mg PO DAILY [facility] Metoprolol Succinate (Toprol Xl (Beta Lorenzo)) 50 mg PO QHS [facility] Last Admin: 08/02/18 00:49 Dose: 50 mg Morphine Sulfate () 1 - 2 mg IV Q4H PRN PRN PRN Reason: PAIN Multivitamins (Multivitamin) 1 tablet PO DAILY@0800 [facility] Nitroglycerin (Nitrostat) 0.4 mg SUBLINGUAL Q5M PRN PRN Reason: CHEST PAIN Pantoprazole Sodium (Protonix) 40 mg PO HS [facility] Sodium Chloride () 5 - 15 ml IV UD PRN PRN Reason: SALINE FLUSH Last Admin: 08/02/18 05:55 Dose: 10 ml Trazodone HCl (Desyrel) 50 mg PO QHS [facility] Last Admin: 08/02/18 00:49 Dose: 50 mg Medical Necessity - Tobacco Use Smoking Status: Former smoker Assessment/Plan All Active Problems Chest pain (Acute) 68-year-old female with past medical history of CAD status post CABG, status post stents, hypertension, hyperlipidemia who comes in with complaints of substernal pressure-like chest pain ongoing a couple of hours prior to her admission. 1. Chest pain, atypical in a patient with known CAD status post CABG status post stents Routine EKG shows no acute ST-T changes. Troponins have been negative. Elevated d-dimer at 1.70 at admission, CT of the chest has been negative for PE; she is going for stress test this morning Plan: We will follow up on results of the stress test, continue on aspirin, Plavix, statins, beta-lorenzo, isosorbide mononitrate 2. Hypertension, controlled, continue on home blood pressure regimen 3. COPD, not on oxygen, not in acute exacerbation now, on as needed breathing treatments, continue with budesonide 4. Hyperlipidemia, on statin 5. Anemia, drop in hemoglobin likely secondary to hemodilution, dropped from 13.5-11.8, will monitor 6. Hypernatremia, likely secondary to dehydration, will monitor 7. ARGENIS secondary to dehydration, improved with IV hydration from 1.39-1.15 8. DVT PPx - Heparin SC 9. Disposition: Pending results of stress test Code Visit Inpatient E&M: 74080 Subs Hosp L2
--- NOTE | 2018-08-02 09:03 | PN_ITS ---
Subjective: Patient was seen and examined. She complains of substernal chest pain associated with shortness of breath ongoing since the day of admission. Denies any dizziness or palpitation or diaphoresis or leg swelling or PND or orthopnea. Rest of 12 point review of systems was negative except for the above. Patient is scheduled for stress test this morning. Vitals/I&O's: Vital Signs Temp Pulse Resp BP Pulse Ox 97.7 F L 65 18 111/64 96 08/02/18 03:14 08/02/18 06:41 08/02/18 06:41 08/02/18 03:14 08/02/18 03:14 Oxygen Delivery Method Room Air Weight: 76.3 kg Body Mass Index (BMI) 31.2 Intake and Output for Last 24 Hours 07/31/18 08/01/18 08/02/18 23:59 23:59 23:59 Intake Total 625 / 625 Balance 625 / 625 General: Alert, Oriented x3, Cooperative, No apparent distress HEENT: Atraumatic, PERRLA, EOMI, Normocephalic Oral: Moist Mucosa Neck: Supple Lungs: Clear to auscultation, Normal air movement Cardiovascular: Regular rate, Regular Rhythm, Normal S1, Normal S2, No murmurs Abdomen: Bowel Sounds Present, Soft, Non Tender, Non-Distended, No Hepato- splenomegaly Extremities: Edema - Trace to +1 pedal edema Skin: No rashes, No breakdown Musculoskeletal: No Tenderness to Palpation of Joints or Extremities Lymphatic: No Cervical, Supraclavicular, or Inguinal Adenopathy Neurological: Cranial nerves II-XII grossly intact, Neuro grossly intact Psych/Mental Status: Normal Affect, Appropriate Laboratory Results 08/01/18 19:45: WBC 8.8, RBC 4.64, Hgb 13.5, Hct 42.6, MCV 91.8, MCH 29.1, MCHC 31.7 L, RDW 13.8, RDW Differential 45.7 H, Plt Count 185, MPV 11.0, Immature Gran % (Auto) 0.200, Neut % (Auto) 58.0, Lymph % (Auto) 32.8, [place] % (Auto) 7.7, Eos % (Auto) 1.1, Baso % (Auto) 0.2, Absolute Neuts (auto) 5.1, Absolute Lymphs (auto) 2.89, Total Counted Not Reportable 08/01/18 19:45: Sodium 142, Potassium 3.7, Chloride 106, Carbon Dioxide 29.0, Anion Gap 7, BUN 19 H, Creatinine 1.39 H, Estim Creat Clear Calc 28.42, Est GFR (MDRD) Af Amer 48 L, Est GFR (MDRD) Non-Af 40 L, BUN/Creatinine Ratio 13.7, Glucose 102, Calcium 9.0, Troponin I < 0.015 08/01/18 19:45: D-Dimer Quant (PE/DVT) 1.70 H* 08/01/18 19:45: B-Natriuretic Peptide 143.4 H 08/02/18 00:15: Troponin I < 0.015 08/02/18 03:10: Troponin I < 0.015 08/02/18 03:10: PT 13.6, INR 1.0, APTT 31.5 08/02/18 03:10: Sodium 146 H, Potassium 3.6, Chloride 109 H, Carbon Dioxide 30.0, Anion Gap 7, BUN 17, Creatinine 1.15 H, Estim Creat Clear Calc 34.35, Est GFR (MDRD) Af Amer 60, Est GFR (MDRD) Non-Af 50 L, BUN/Creatinine Ratio 14.8, Glucose 90, Calcium 8.2 L, Triglycerides 109, Cholesterol 135, LDL Cholesterol 75, VLDL Cholesterol 22, HDL Cholesterol 38 L 08/02/18 03:10: WBC 10.0, RBC 4.07 L, Hgb 11.8 L, Hct 36.9 L, MCV 90.7, MCH 29.0, MCHC 32.0, RDW 13.7, RDW Differential 45.0 H, Plt Count 144 L, MPV 10.6 08/02/18 05:55: Troponin I 0.016 Current Medications Albuterol Sulfate (Ventolin Aerosols) 2.5 mg INHALATION Q2H PRN PRN PRN Reason: sob/wheezing Albuterol/Ipratropium (Duoneb) 3 ml INHALATION Q4HWA.RT NUBIA Last Admin: 08/02/18 06:39 Dose: 3 ml Ascorbic Acid (Vitamin C) 500 mg PO DAILY@0800 [facility] Aspirin (Aspirin, Baby) 81 mg PO DAILY@0800 [facility] Last Admin: 08/02/18 05:56 Dose: 81 mg Atorvastatin Calcium (Lipitor) 80 mg PO X1 ONE Stop: 08/02/18 23:51 Last Admin: 08/02/18 00:48 Dose: 80 mg Bisacodyl (Dulcolax) 5 mg PO DAILY PRN PRN PRN Reason: Constipation Budesonide (Pulmicort Aerosol) 0.5 mg INHALATION Q12H.RT [facility] Last Admin: 08/02/18 06:39 Dose: 0.5 mg Calcium Carbonate (Os-Prakash 500) 500 mg PO BID [facility] Cholecalciferol (Vitamin D) 2,000 unit PO DAILY [facility] Clopidogrel Bisulfate (Plavix) 75 mg PO DAILY [facility] Last Admin: 08/02/18 05:56 Dose: 75 mg Heparin Sodium (Porcine) (Heparin Na) 5,000 unit SC Q8 [facility] Last Admin: 08/02/18 05:12 Dose: Not Given Hydralazine HCl (Apresoline Iv) 5 mg IV Q4H PRN PRN PRN Reason: SBP > 160 Sodium Chloride () 1,000 mls @ 100 mls/hr IV .Q10H [facility] Stop: 08/02/18 10:11 Last Admin: 08/02/18 00:48 Dose: 100 mls/hr Sodium Chloride () 250 mls @ 15 mls/hr IV .[id number] PRN PRN Reason: SALINE FLUSH Isosorbide Mononitrate (Imdur) 60 mg PO DAILY [facility] Magnesium Hydroxide (Milk Of Magnesia) 30 ml PO DAILY PRN PRN Reason: Constipation Metoprolol Succinate (Toprol Xl (Beta Lorenzo)) 25 mg PO DAILY [facility] Metoprolol Succinate (Toprol Xl (Beta Lorenzo)) 50 mg PO QHS [facility] Last Admin: 08/02/18 00:49 Dose: 50 mg Morphine Sulfate () 1 - 2 mg IV Q4H PRN PRN PRN Reason: PAIN Multivitamins (Multivitamin) 1 tablet PO DAILY@0800 [facility] Nitroglycerin (Nitrostat) 0.4 mg SUBLINGUAL Q5M PRN PRN Reason: CHEST PAIN Pantoprazole Sodium (Protonix) 40 mg PO HS [facility] Sodium Chloride () 5 - 15 ml IV UD PRN PRN Reason: SALINE FLUSH Last Admin: 08/02/18 05:55 Dose: 10 ml Trazodone HCl (Desyrel) 50 mg PO QHS [facility] Last Admin: 08/02/18 00:49 Dose: 50 mg Medical Necessity - Tobacco Use Smoking Status: Former smoker Assessment/Plan All Active Problems Chest pain (Acute) 68-year-old female with past medical history of CAD status post CABG, status post stents, hypertension, hyperlipidemia who comes in with complaints of substernal pressure-like chest pain ongoing a couple of hours prior to her admission. 1. Chest pain, atypical in a patient with known CAD status post CABG status post stents Routine EKG shows no acute ST-T changes. Troponins have been negative. Elevated d-dimer at 1.70 at admission, CT of the chest has been negative for PE; she is going for stress test this morning Plan: We will follow up on results of the stress test, continue on aspirin, Plavix, statins, beta-lorenzo, isosorbide mononitrate 2. Hypertension, controlled, continue on home blood pressure regimen 3. COPD, not on oxygen, not in acute exacerbation now, on as needed breathing treatments, continue with budesonide 4. Hyperlipidemia, on statin 5. Anemia, drop in hemoglobin likely secondary to hemodilution, dropped from 13.5-11.8, will monitor 6. Hypernatremia, likely secondary to dehydration, will monitor 7. ARGENIS secondary to dehydration, improved with IV hydration from 1.39-1.15 8. DVT PPx - Heparin SC 9. Disposition: Pending results of stress test Code Visit Inpatient E&M: 72139 Subs Hosp L2
--- NOTE | 2018-08-02 12:27 | STRESSREP ---
Stress Test Report Date: August 02, 2018 Procedure: Pharmacologic stress nuclear imaging study Indications: Chest pain; CAD; status post PCI; status post CABG Consent: Per the patient Procedure: The patient underwent pharmacologic (Regadenoson) evaluation with a peak heart rate of 104 beats per minute (69% predicted maximal heart rate) and a peak blood pressure of 140/82 mmHg. The baseline ECG demonstrated Normal sinus rhythm . The peak pharmacologic ECG demonstrated no obvious ECG changes There were occasional PVCs pretest and during recovery . There was no complaint of chest discomfort during pharmacologic infusion or recovery. The examination was discontinued secondary to completion of protocol. Impression: 1. Pharmacologic (Regadenoson) evaluation 2. Peak pharmacologic ECG with no obvious ECG changes . 3. There were occasional PVCs pretest and during recovery . 4. Nuclear images pending Myocardial perfusion imaging study: Technique: The patient was injected with 11.3 millicuries of technetium 99m Cardiolite and subsequently rest SPECT Cardiolite nuclear imaging was obtained in the horizontal long, vertical long, and short axis views. The patient underwent pharmacologic (Regadenoson) evaluation with a peak heart rate of 104 beats per minute (69 % percent predicted maximal heart rate) and a peak blood pressure of 140/82 mmHg. The patient was injected with 32.1 millicuries of technetium 99m Cardiolite and subsequently stress SPECT Cardiolite nuclear imaging was obtained in the horizontal long, vertical long, and short axis views. A gated Cardiolite study at peak stress was obtained. Interpretation: Rest and stress SPECT Cardiolite nuclear imaging status post realignment, normalization, and attenuation correction demonstrate relative uniform tracer uptake and myocardial perfusion appearing within normal limits . There is end systolic thickening and brightening. The gated Cardiolite study demonstrates myocardial thickening and inward wall motion. The reported LVEF is 81 %. Impression: 1. Rest and stress SPECT Cardiolite nuclear imaging demonstrate relative uniform tracer uptake and myocardial perfusion appearing within normal limits. 2. The gated Cardiolite study reports an LVEF of 81 / %. This note was generated with [employer] software. It may contain incorrect words, spelling, and punctuation that were not noted in checking the note before signing.
[2018-08-02] MEDS: Ascorbic Acid 500 MG Tablet PO (13:05)
[2018-08-02] MEDS: Multivitamins,Therapeutic Tablet 1 TABLET PO (13:05)
[2018-08-02] MEDS: Calcium (Elemental) 500 MG Tablet PO (13:06)
[2018-08-02] MEDS: Isosorbide Mononitrate 60 MG Tablet PO (13:06)
[2018-08-02] MEDS: Heparin Injection (Vial) 5,000 UNIT/ML VIAL 5000 UNIT SC (13:07)
[2018-08-02] MEDS: Metoprolol(XL)Succ 25 MG Tablet PO (13:13)
--- NOTE | 2018-08-02 14:48 | DCINST_ITS ---
- Discharge Diagnoses Reason(s) for Visit for Discharge Instructions: Chest pain You will use the following diet at home:: Cardiac Your food should be the consistency of: Regular Your liquids should be the consistency of: Regular/Thin Discharge Activity: Return to Normal Activity Additional Instructions: Continue on your medications. Follow-up with your doctor and ground helper street railway within 1-2 weeks. Allergies/Adverse Reactions: Allergies No Known Allergies Allergy (Verified 08/01/18 19:42) Medications to take at Discharge Albuterol Inhaler [Ventolin Hfa] 1 puff INHALATION Q4H PRN PRN 03/06/15 Cholecalciferol (VIT D3) [Vitamin D3] 2,000 unit PO DAILY 03/06/15 Clopidogrel Bisulfate [Plavix] 75 mg PO DAILY 03/06/15 Metoprolol(XL)Succ [Toprol Xl (Beta Lorenzo)] 25 mg PO DAILY 03/06/15 Metoprolol(XL)Succ [Toprol Xl (Beta Lorenzo)] 50 mg PO QHS 03/06/15 Nitroglycerin [Nitrostat] 0.4 mg SUBLINGUAL Q5M PRN 03/06/15 Pantoprazole Sodium [Protonix] 40 mg PO 2000 03/06/15 Tiotropium [place] [Spiriva 18 MCG] 1 puff INHALATION DAILY 03/06/15 traZODone [Desyrel] 50 mg PO QHS 03/06/15 Ascorbic Acid [Vitamin C] 500 mg PO DAILY@0800 03/01/17 Aspirin [Aspirin, Baby] 81 mg PO DAILY@0803/01/17 Calcium Carbonate [Calcium] 600 mg PO BID 03/01/17 Furosemide [Lasix] 20 mg PO DAILY 03/01/17 Isosorbide Mononitrate [Isosorbide Mononitrate ER] 60 mg PO DAILY 03/01/17 Multivitamin [Multiple Vitamins] 1 each PO DAILY 03/01/17 [place]-3 Fatty Acids/Fish Oil [Fish Oil 1,000 mg Capsule] 1 each PO BID 03/01/17 Potassium Chloride [K-Dur] 20 meq PO DAILY 03/01/17 Pravastatin [Pravachol] 40 mg PO QHS 03/01/17 Beclomethasone Diprop Inhaler [Qvar 80 Mcg Inhaler] 2 puff INHALATION BID 09/20/17 Lisinopril 20 mg PO DAILY 08/01/18 Primary Care Physician: Amparo Fall [Primary Care Provider] - Please follow up with your Primary Care Physician in: within 1-2 weeks Test Results: Test results from this visit will be discussed in further detail at your follow- up appointment, if applicable. Proposed Discharge Date: 08/02/18
--- NOTE | 2018-08-02 14:50 | PCM.DC.SUM ---
Discharge Date and Diagnosis Date of Admission: 08/01/18 Date of Discharge: 08/02/18 - Primary Discharge Diagnosis Chest pain Possible GERD Acute kidney injury Hyponatremia Anemia - Secondary Discharge Diagnosis Chronic Problems CHF (congestive heart failure) (Chronic), EF=40% COPD, mild (Chronic) Dyslipidemia (Chronic) HTN (hypertension) (Chronic) CAD (coronary artery disease) (Chronic), 1 stent Hospital Course and Treatment Imaging Results: Clinical Impression(s) from Imaging Studies Chest X-Ray 08/01/18 20:05 IMPRESSION: Degenerative changes, as described above. No demonstrated acute cardiopulmonary process. Electronically Signed: Osito Perez MD at 21:09 EST , Service support , Chest CTA 08/01/18 20:49 IMPRESSION: CTA chest examination, without a demonstrated pulmonary embolism or arterial dissection. Electronically Signed: Osito Perez MD at 22:31 EST , Service support , 08/02/18 05:55 Nuclear Stress Test - Chemical [NM] AM (NON MEDS) None Operations: None Procedures: Stress test Summary of Care Provided: 68-year-old female with past medical history of CAD status post CABG, status post stents, hypertension, hyperlipidemia who comes in with complaints of substernal pressure-like chest pain ongoing a couple of hours prior to her admission. Her admitting EKG was unremarkable. Admitting d-dimer was elevated at 1.70. CTA of the chest was negative for acute PE. Her troponins x3 were negative. She was monitored on telemetry with no acute events. She underwent a stress test in the morning that was negative. She was continued on aspirin, Plavix, statin, beta-lorenzo, isosorbide. She will follow-up with Dr. Bowman in the outpatient. Patient was noted to have a drop in her hemoglobin likely secondary to hemodilution. She was also admitted with acute kidney injury secondary to dehydration that improved to her baseline at discharge. She will need to follow-up with him primary care doctor and nurse unit manager within 1-2 weeks. At discharge, her chest pain was felt to be likely secondary to GERD. She was asked to double her pantoprazole to twice a day for about 2 weeks and then continue with once daily. Subjective: See progress note of the day Objective: See progress note of the day - Physical Exam Vital Signs Temp Pulse Resp BP Pulse Ox 98.0 F 91 17 137/69 H 98 08/02/18 13:20 08/02/18 13:20 08/02/18 13:20 08/02/18 13:20 08/02/18 13:20 Oxygen Delivery Method Room Air Weight: 76.3 kg Body Mass Index (BMI) 31.2 Intake and Output for Last 24 Hours 07/31/18 08/01/18 08/02/18 23:59 23:59 23:59 Intake Total 1110 / 1110 Balance 1110 / 1110 Laboratory Tests Past 24 Hrs 08/01/18 08/01/18 08/01/18 19:45 19:45 19:45 WBC 8.8 RBC 4.64 Hgb 13.5 Hct 42.6 MCV 91.8 MCH 29.1 MCHC 31.7 L RDW 13.8 RDW Differential 45.7 H Plt Count 185 MPV 11.0 Immature Gran % (Auto) 0.200 Neut % (Auto) 58.0 Lymph % (Auto) 32.8 [place] % (Auto) 7.7 Eos % (Auto) 1.1 Baso % (Auto) 0.2 Absolute Neuts (auto) 5.1 Absolute Lymphs (auto) 2.89 Total Counted Not Reportable PT INR APTT D-Dimer Quant (PE/DVT) 1.70 H* Sodium 142 Potassium 3.7 Chloride 106 Carbon Dioxide 29.0 Anion Gap 7 BUN 19 H Creatinine 1.39 H Estim Creat Clear Calc 28.42 Est GFR (MDRD) Af Amer 48 L Est GFR (MDRD) Non-Af 40 L BUN/Creatinine Ratio 13.7 Glucose 102 Calcium 9.0 Troponin I < 0.015 B-Natriuretic Peptide Triglycerides Cholesterol LDL Cholesterol VLDL Cholesterol HDL Cholesterol 08/01/18 08/02/18 08/02/18 19:45 00:15 03:10 WBC RBC Hgb Hct MCV MCH MCHC RDW RDW Differential Plt Count MPV Immature Gran % (Auto) Neut % (Auto) Lymph % (Auto) [place] % (Auto) Eos % (Auto) Baso % (Auto) Absolute Neuts (auto) Absolute Lymphs (auto) Total Counted PT INR APTT D-Dimer Quant (PE/DVT) Sodium Potassium Chloride Carbon Dioxide Anion Gap BUN Creatinine Estim Creat Clear Calc Est GFR (MDRD) Af Amer Est GFR (MDRD) Non-Af BUN/Creatinine Ratio Glucose Calcium Troponin I < 0.015 < 0.015 B-Natriuretic Peptide 143.4 H Triglycerides Cholesterol LDL Cholesterol VLDL Cholesterol HDL Cholesterol 08/02/18 08/02/18 08/02/18 03:10 03:10 03:10 WBC 10.0 RBC 4.07 L Hgb 11.8 L Hct 36.9 L MCV 90.7 MCH 29.0 MCHC 32.0 RDW 13.7 RDW Differential 45.0 H Plt Count 144 L MPV 10.6 Immature Gran % (Auto) Neut % (Auto) Lymph % (Auto) [place] % (Auto) Eos % (Auto) Baso % (Auto) Absolute Neuts (auto) Absolute Lymphs (auto) Total Counted PT 13.6 INR 1.0 APTT 31.5 D-Dimer Quant (PE/DVT) Sodium 146 H Potassium 3.6 Chloride 109 H Carbon Dioxide 30.0 Anion Gap 7 BUN 17 Creatinine 1.15 H Estim Creat Clear Calc 34.35 Est GFR (MDRD) Af Amer 60 Est GFR (MDRD) Non-Af 50 L BUN/Creatinine Ratio 14.8 Glucose 90 Calcium 8.2 L Troponin I B-Natriuretic Peptide Triglycerides 109 Cholesterol 135 LDL Cholesterol 75 VLDL Cholesterol 22 HDL Cholesterol 38 L 08/02/18 05:55 WBC RBC Hgb Hct MCV MCH MCHC RDW RDW Differential Plt Count MPV Immature Gran % (Auto) Neut % (Auto) Lymph % (Auto) [place] % (Auto) Eos % (Auto) Baso % (Auto) Absolute Neuts (auto) Absolute Lymphs (auto) Total Counted PT INR APTT D-Dimer Quant (PE/DVT) Sodium Potassium Chloride Carbon Dioxide Anion Gap BUN Creatinine Estim Creat Clear Calc Est GFR (MDRD) Af Amer Est GFR (MDRD) Non-Af BUN/Creatinine Ratio Glucose Calcium Troponin I 0.016 B-Natriuretic Peptide Triglycerides Cholesterol LDL Cholesterol VLDL Cholesterol HDL Cholesterol Discharge Diet: Low fat/ Low Cholesterol, 2000 mg Sodium Diet Discharge Activity: Return to Normal Activity Home Medications: Medications to take at Discharge Albuterol Inhaler [Ventolin Hfa] 1 puff INHALATION Q4H PRN PRN 03/06/15 Cholecalciferol (VIT D3) [Vitamin D3] 2,000 unit PO DAILY 03/06/15 Clopidogrel Bisulfate [Plavix] 75 mg PO DAILY 03/06/15 Metoprolol(XL)Succ [Toprol Xl (Beta Lorenzo)] 25 mg PO DAILY 03/06/15 Metoprolol(XL)Succ [Toprol Xl (Beta Lorenzo)] 50 mg PO QHS 03/06/15 Nitroglycerin [Nitrostat] 0.4 mg SUBLINGUAL Q5M PRN 03/06/15 Pantoprazole Sodium [Protonix] 40 mg PO 2000 03/06/15 Tiotropium [place] [Spiriva 18 MCG] 1 puff INHALATION DAILY 03/06/15 traZODone [Desyrel] 50 mg PO QHS 03/06/15 Ascorbic Acid [Vitamin C] 500 mg PO DAILY@0800 03/01/17 Aspirin [Aspirin, Baby] 81 mg PO DAILY@0800 03/01/17 Calcium Carbonate [Calcium] 600 mg PO BID 03/01/17 Furosemide [Lasix] 20 mg PO DAILY 03/01/17 Isosorbide Mononitrate [Isosorbide Mononitrate ER] 60 mg PO DAILY 03/01/17 Multivitamin [Multiple Vitamins] 1 each PO DAILY 03/01/17 [place]-3 Fatty Acids/Fish Oil [Fish Oil 1,000 mg Capsule] 1 each PO BID 03/01/17 Potassium Chloride [K-Dur] 20 meq PO DAILY 03/01/17 Pravastatin [Pravachol] 40 mg PO QHS 03/01/17 Beclomethasone Diprop Inhaler [Qvar 80 Mcg Inhaler] 2 puff INHALATION BID 09/20/17 Lisinopril 20 mg PO DAILY 08/01/18 Primary Care Physician: Amparo aFll [Primary Care Provider] - Please follow up with your Primary Care Physician in: within 1-2 weeks Disposition: Home Minutes spent on discharge:: 40 Patient Condition:: Stable Medical Necessity - Tobacco Use Smoking Status: Former smoker Tobacco Use: Non-smoker Meaningful Use Info Meaningful Use Diagnoses (Choose all that apply): None applicable Code Visit OBSV E&M: 27298 Observation care discharge
== END 2018-08-02 17:30 | disposition home or self-care (01) ==
LOC: ED 21:09 → ICU 23:15
PROVIDERS: Admitting Provider Hospitalist; Emergency Provider Emergency Medicine; Family Provider Internal Medicine; PCP Internal Medicine; Visit Provider Internal Medicine
DX: R07.89 Other chest pain (principal); R06.02 Shortness of breath; J44.9 Chronic obstructive pulmonary disease, unspecified; I50.9 Heart failure, unspecified; I11.0 Hypertensive heart disease with heart failure; I25.10 Atherosclerotic heart disease of native coronary artery without angina pectoris; E78.5 Hyperlipidemia, unspecified; E86.0 Dehydration; D64.9 Anemia, unspecified; N17.9 Acute kidney failure, unspecified; E87.1 Hypo-osmolality and hyponatremia; Z95.5 Presence of coronary angioplasty implant and graft; Z79.899 Other long term (current) drug therapy; Z79.82 Long term (current) use of aspirin; Z95.1 Presence of aortocoronary bypass graft; Z87.891 Personal history of nicotine dependence
CPT/HCPCS: 71045; 71275; 78452; 80048; 80061; 83880; 84484; 85025; 85027; 85379; 85610; 85730; 93005; 93017; 94640; 96360; 96361; 96372; 99218; 99283; A9500; J7030; Q9967; A4216; G0378; J2785

== ENCOUNTER 2018-10-24 21:21 | Emergency (ER) | payer MEDICARE, SELFPAY ==
[2018-08-02 00:13] VITALS: BMI 31.2
[2018-10-24 21:21] VITALS: BP 156/99; PULSE 104; RESP 16; TEMP 38.6; O2SAT 92; BMI 30.4
--- NOTE | 2018-10-24 21:29 | EKG12_ITS ---
Test Reason : CP Blood Pressure : / mmHG Vent. Rate : 105 BPM Atrial Rate : 105 BPM P-R Int : 124 ms QRS Dur : 064 ms QT Int : 320 ms P-R-T Axes : 072 017 059 degrees QTc Int : 422 ms Sinus tachycardia with frequent Premature ventricular complexes Low voltage QRS Nonspecific ST abnormality Abnormal ECG Confirmed by TIARA CLEARY, ANGELICA ([id number]), web content editor MAYRA CORONA ([id number]) on 10/26/2018 1:32:48 PM Referred By: ANASTACIO Confirmed By:ANGELICA MENJIVAR MD
[2018-10-24 21:35] VITALS: BP 156/99; PULSE 104; RESP 19; TEMP 38.6; O2SAT 93
--- NOTE | 2018-10-24 21:36 | RAD_ITS ---
STUDY: X-RAY CHEST REASON FOR EXAM: Female, 68 years old. Chest pain TECHNIQUE: Single AP portable view of the chest. COMPARISON: August 01, 2018 FINDINGS: There are right midlung increased opacities. There is blunting of the right costophrenic recess. Sternal cerclage wires are present from a prior sternotomy. Normal mediastinum and magdalene. Normal visualized pulmonary arteries. Normal visualized aortic arch and descending thoracic aorta. Normal visualized thoracic spine. Normal visualized ribs, clavicles, and shoulders. There is no demonstrated abnormality of the visualized soft tissue structures of the upper abdomen. RAD/Chest 1 View (Portable) IMPRESSION: Right midlung infiltrate. Right pleural thickening or small effusion. Electronically Signed: Osito Perez MD at 22:06 EDT , Service support ,
[2018-10-24 22:13] LABS: Anion Gap 8 (5-15); BUN 15 mg/dL (7-18); BUN/Creat Ratio 13.2 RATIO (10-20); Chloride 103 mmol/L (98-107); Creatinine, Serum 1.14 mg/dL (0.55-1.02); EST Glomerular Filtration Rate 50 mL/min (>60); Est Glom Filt Rate - Afr Amer 61 mL/min (>60); Estimated Creatinine Clearance 34.65 ml/min; Glucose 110 mg/dL (74-106); Potassium 3.6 mmol/L (3.5-5.1); Sodium Level 136 mmol/L (136-145)
--- NOTE | 2018-10-24 22:21 | CT_ITS ---
STUDY: CT ABDOMEN AND PELVIS WITHOUT CONTRAST REASON FOR EXAM: Female, 68 years old. Right upper quadrant pain. RADIATION DOSAGE (If Supplied By Facility): CTDIvol = ( 11.63 ) mGy, DLP = ( 546.20 ) mGycm TECHNIQUE: Transaxial images were obtained from the dome of the diaphragm to the symphysis pubis without oral contrast, and without intravenous contrast. Sagittal and coronal images were reconstructed. Individualized dose optimization techniques were used for this CT. COMPARISON: None. FINDINGS: The visualized lung bases are unremarkable. The visualized portions of the heart are within normal limits. Normal liver. There is non-visualization of the gallbladder, which may be secondary to either contraction or a prior cholecystectomy. Normal spleen. Normal pancreas. Normal bilateral adrenal glands. Normal right kidney. Normal left kidney. Normal visualized stomach. Normal small intestine. There are multiple colonic diverticula consistent with diverticulosis. There is non-visualization of the appendix. There is diffuse atherosclerotic calcification of the abdominal aorta, without a demonstrated aneurysm. Normal inferior vena cava. Normal retroperitoneum. Normal urinary bladder. There is absence of the uterus consistent with a prior hysterectomy. There is no free fluid in the abdomen or pelvis. Normal abdominal wall. There are diffuse degenerative changes of the visualized lumbar spine. CT/Abdomen/Pelvis without Cont IMPRESSION: Colonic diverticulosis. No obstruction or abscess. Electronically Signed: Osito Perez MD at 23:13 EDT , Service support ,
[2018-10-24 22:24] LABS: Absolute Lymphocyte Count 1.73 X10^3/ul (0.83-4.51); Absolute Neutrophil Count 11.3 X10^3/uL (2.0-7.7); Basophil# 0.01 X10^3/uL; Basophil% 0.1 % (0-1); Eosinophils% 0.7 % (0-5); Hematocrit 41.2 % (37-47); Hemoglobin 13.8 g/dl (12.0-15.0); Lymphocyte # 1.73 X10^3/ul (4.0); Lymphocyte % 12.3 % (19-41); Mean Corp Hgb Conc 33.5 g/gl (32-36); Mean Corpuscular Hgb 29.7 pg (27.0-32.0); Mean Corpuscular Volume 88.6 fL (81-99); Mean Platelet Vol. 10.8 fl (6.2-12.0); Monocyte# 0.86 X10^3/uL; Monocyte% 6.1 % (0-10); Neutrophil % 80.6 % (47-70); Platelet Count 210 K/mm3 (150-450); RBC Distribution Width CV 13.7 % (11.6-14.6); RBC Distribution Width SD 44.4 fl (35.1-43.9); Red Blood Count 4.65 M/mm3 (4.2-5.4)
[2018-10-24 22:25] LABS: POSITIVE COUNT NO; POSITIVE DIFFERENTIAL NO; POSITIVE MORPHOLOGY NO
--- NOTE | 2018-10-24 22:25 | ED.DCSUM_ITS ---
- ER Visit Summary Date of Service: 10/24/18 Chief Complaint: Right-sided chest pain History of Present Illness: The patient is a 68 F who presents for 3 days of intermittent right-sided chest pain. Pain began in the right lateral chest and now has radiated up into the breast. Patient will have sharp pains that last approximately 1 minute and then improved to just a very dull sensation. It is worsened and improved by nothing. Onset was at rest. Patient has associated nausea and she also has shortness of breath with the sharp pain issues. No fever or cough noted. Patient has a history of coronary artery disease status post CABG, asthma, COPD, hypertension. She is on Plavix. She does not smoke. Patient had a colonoscopy 1 week ago and states it was normal. Physical Examination: Vital signs: Febrile at 101.5, hemodynamically stable, no hypoxia on room air General: well nourished, well developed, in no distress Skin: warm, dry, no rash, no pallor HEENT: normocephalic and atraumatic; PERRL, EOMI, moist mucous membranes Cardiovascular: Tachycardic rate and rhythm without murmurs, no peripheral edema, 2+ pulses all distal extremities, chest mildly tender on the right, no rash noted to the torso Respiratory: No increased work of breathing, lungs are clear to auscultation bilaterally, no rales, rhonchi or wheezing Abdominal: Abdomen is soft, tender in the left side with normoactive bowel sounds, no guarding or rebound, no masses MSK: Moves all extremities, no deformities, normal strength Neuro: Awake and alert, oriented ?4. No facial droop, sensation and motor function intact and symmetric Test Results: Abnormal Lab Results 10/24/18 10/24/18 10/24/18 21:47 21:47 21:47 WBC 14.0 H RBC 4.65 Hgb 13.8 Hct 41.2 MCV 88.6 MCH 29.7 MCHC 33.5 RDW 13.7 RDW Differential 44.4 H Plt Count 210 MPV 10.8 Immature Gran % (Auto) 0.200 Neut % (Auto) 80.6 H Lymph % (Auto) 12.3 L Burt % (Auto) 6.1 Eos % (Auto) 0.7 Baso % (Auto) 0.1 Absolute Neuts (auto) 11.3 H Absolute Lymphs (auto) 1.73 Total Counted Not Reportable PT 13.4 INR 1.0 APTT 35.0 Sodium 136 Potassium 3.6 Chloride 103 Carbon Dioxide 25.0 Anion Gap 8 BUN 15 Creatinine 1.14 H Estim Creat Clear Calc 34.65 Est GFR (MDRD) Af Amer 61 Est GFR (MDRD) Non-Af 50 L BUN/Creatinine Ratio 13.2 Glucose 110 H Lactic Acid Calcium 9.0 Total Bilirubin AST ALT Alkaline Phosphatase Troponin I < 0.015 Total Protein Albumin Globulin Albumin/Globulin Ratio 10/24/18 10/24/18 21:47 21:47 WBC RBC Hgb Hct MCV MCH MCHC RDW RDW Differential Plt Count MPV Immature Gran % (Auto) Neut % (Auto) Lymph % (Auto) Burt % (Auto) Eos % (Auto) Baso % (Auto) Absolute Neuts (auto) Absolute Lymphs (auto) Total Counted PT INR APTT Sodium 136 Potassium 3.6 Chloride 103 Carbon Dioxide 24.0 Anion Gap 9 BUN 16 Creatinine 1.16 H Estim Creat Clear Calc 34.05 Est GFR (MDRD) Af Amer 59 L Est GFR (MDRD) Non-Af 49 L BUN/Creatinine Ratio 13.8 Glucose 111 H Lactic Acid 1.1 Calcium 9.0 Total Bilirubin 0.70 AST 33 ALT 34 Alkaline Phosphatase 97 Troponin I Total Protein 7.9 Albumin 3.4 Globulin 4.5 H Albumin/Globulin Ratio 0.8 L Clinical Impression(s) from Imaging Studies Chest X-Ray 10/24/18 21:36 IMPRESSION: Right midlung infiltrate. Right pleural thickening or small effusion. Electronically Signed: Osito Perez MD at 22:06 EDT , Service support , Abdomen/Pelvis CT 10/24/18 22:21 IMPRESSION: Colonic diverticulosis. No obstruction or abscess. Electronically Signed: Osito Perez MD at 23:13 EDT , Service support , Medications Given Discontinued Medications Acetaminophen (Tylenol) 650 mg PO X1 ONE Stop: 10/24/18 22:23 Last Admin: 10/24/18 22:28 Dose: 650 mg Amoxicillin/Clavulanate Potassium (Augmentin Tablet) 875 mg PO X1 ONE Stop: 10/24/18 23:38 Last Admin: 10/24/18 23:54 Dose: 875 mg Aspirin (Aspirin, Baby) 324 mg PO X1 STA Stop: 10/24/18 22:21 Last Admin: 10/24/18 22:28 Dose: 324 mg Azithromycin (Zithromax) 500 mg PO X1 ONE Stop: 10/24/18 23:39 Last Admin: 10/24/18 23:54 Dose: 500 mg Sodium Chloride () 1,000 mls @ 250 mls/hr IV .Q4H NUBIA Last Admin: 10/24/18 22:28 Dose: 250 mls/hr Emergency Department Course and Treatment: Patient was given aspirin for her chest pain. She was noted to be febrile and mildly tachycardic. Because she had a colonoscopy recently and has the abdominal tenderness and nausea, CT abdomen and pelvis performed to look for any inflammatory changes or free air. CT the abdomen and pelvis showed no acute process. Chest x-ray showed a right middle lobe infiltrate. Patient had a leukocytosis of 14. Lactate was normal at 1.1. Troponin negative. EKG showed sinus rhythm with a tachycardic rate of 105 and occasional PVCs. Patient had received Tylenol for her fever. On reevaluation she stated she was feeling well and felt well enough to go home on oral antibiotics. Based on her PORT score, outpatient treatment is appropriate. Patient was given first dose of azithromycin and Augmentin for treatment of community-acquired pneumonia in the emergency department. Patient was hemodynamically stable on reevaluation and room air saturation was in the mid 90s. Patient was discharged home and is to return if she has any worsening of her condition. Treatment Plan: [] Disposition: [] Impression: Community-acquired pneumonia, right middle lobe This note was generated with [employer] dictation software. It may contain incorrect words, spelling, and punctuation that were not noted in review of the chart prior to signing ED Disposition - Plan for ED Patient: Disposition: Home or Assisted Living Instructions: ED Pneumonia Adult Prescriptions: RX: Amox/Clavulanate Tablet [Augmentin Tablet] 875 mg PO Q12H #20 tab RX: Azithromycin 250 mg PO DAILY #4 tab Referrals: Amparo Fall [Primary Care Provider] - 1-2 Days if not improving Additional Instructions: Start the antibiotics tomorrow morning and take both courses for the full prescription length, even if you feel better before they are complete. If at any time you have worsening of your condition or any new concerning symptoms, return immediately to the emergency department for another evaluation.
[2018-10-24] MEDS: Aspirin 81 MG TAB.CHEW 324 MG PO (22:28)
[2018-10-24] MEDS: Acetaminophen 325 MG Tablet 650 MG PO (22:28)
[2018-10-24] MEDS: 0.9% Normal Saline 1,000 ML 250 ML IV (22:28)
[2018-10-24 22:37] LABS: Prothrombin Time (Protime)PT. 13.4 SECONDS (11.7-14.9)
[2018-10-24 22:43] LABS: ALB/GLOB Ratio 0.8 RATIO (0.9-2.4); AST(SGOT) 33 U/L (15-37); Alanine Aminotransfer ALT/SGPT 34 U/L (13-56); Albumin, Serum 3.4 g/dL (3.2-5.0); Alkaline Phosphatase 97 U/L (45-117); Anion Gap 9 (5-15); BUN 16 mg/dL (7-18); BUN/Creat Ratio 13.8 RATIO (10-20); Chloride 103 mmol/L (98-107); Creatinine, Serum 1.16 mg/dL (0.55-1.02); EST Glomerular Filtration Rate 49 mL/min (>60); Est Glom Filt Rate - Afr Amer 59 mL/min (>60); Estimated Creatinine Clearance 34.05 ml/min; Globulin 4.5 g/dL (2.2-4.2); Glucose 111 mg/dL (74-106); Potassium 3.6 mmol/L (3.5-5.1); Protein, Total 7.9 g/dL (6.4-8.2); Sodium Level 136 mmol/L (136-145)
[2018-10-24 22:45] LABS: Lactic Acid 1.1 mmol/L (0.4-2.0)
[2018-10-24 23:36] VITALS: BP 108/75; PULSE 93; RESP 18; O2SAT 96
[2018-10-24 23:49] VITALS: BP 101/61; PULSE 93; RESP 16; O2SAT 96
[2018-10-24] MEDS: Amox/Clavulanate 875 MG Tablet PO (23:54)
[2018-10-24] MEDS: Azithromycin 250 MG Tablet 500 MG PO (23:54)
--- NOTE | 2018-10-25 21:59 | ED.RN ---
LAB CALLS WITH RESULTS. PT WITH GRAM POSITIVE COCCI FROM BLOOD CULTURE. CHARGE NURSE SHEYLA VILLALOBOS.
--- NOTE | 2018-10-25 22:34 | ED.RN ---
DR GONZALEZ REVIEWED PRELIMINARY RESULTS, WILL WAIT TO SEE FINAL RESULT OR RESULTS FROM OTHER SET OF CULTURES
== END 2018-10-24 23:58 | disposition home or self-care (01) ==
PROVIDERS: Emergency Provider Emergency Medicine; Family Provider Internal Medicine; PCP Internal Medicine
DX: J18.9 Pneumonia, unspecified organism (principal); K57.30 Diverticulosis of large intestine without perforation or abscess without bleeding; J44.0 Chronic obstructive pulmonary disease with (acute) lower respiratory infection; I25.10 Atherosclerotic heart disease of native coronary artery without angina pectoris; J45.909 Unspecified asthma, uncomplicated; I10 Essential (primary) hypertension; Z95.1 Presence of aortocoronary bypass graft; Z79.82 Long term (current) use of aspirin
CPT/HCPCS: 71045; 74176; 80048; 80053; 83605; 84484; 85025; 85610; 85730; 87040; 87149; 93005; 99285; J7030; A4216

== ENCOUNTER → 2021-01-07 08:03 | Outpatient (CLI) | payer MEDICARE, SELFPAY ==
--- NOTE | 2021-01-07 08:05 | CT_ITS ---
STUDY: CT BRAIN WITH AND WITHOUT CONTRAST REASON FOR EXAM: Female, 70 years old. ABNORMAL INVOLUNTARY MOVEMENT RADIATION DOSAGE (If Supplied By Facility): CTDIvol = ( 44.99 ) mGy, DLP = ( 1479.73 ) mGycm TECHNIQUE: Transaxial CT imaging of the brain was performed pre and post contrast administration. The examination was performed with intravenous administration of IV 50mL Isovue-370. Individualized dose optimization techniques were used for this CT. COMPARISON: None. FINDINGS: Normal soft tissue structures. Normal calvarium. There is mild cerebral atrophy with widening of the extra-axial spaces and ventricular dilatation. Normal white matter tracts of the cerebral hemispheres. Normal basal ganglia and thalami. Normal brainstem. Normal cerebellum. There is no intracranial hemorrhage. There are no findings of an acute ischemic infarction. Atherosclerotic calcification of the vertebral arteries and cavernous portions of the internal carotid arteries bilaterally. Normal visualized paranasal sinuses. CT/Brain/Head W/WO Contrast IMPRESSION: Chronic involutional changes of the brain. Electronically Signed: Darryn Guerra MD at 9:29 EDT , Service support ,
[2021-01-07 12:04] LABS: CREATININE FINGERSTICK 1.15 mg/dL (0.55-1.02); EGFR FINGERSTICK 49 mL/min (>60)
== END ==
PROVIDERS: PCP Internal Medicine
DX: R25.9 Unspecified abnormal involuntary movements (principal)
CPT/HCPCS: 70470; Q9967

== ENCOUNTER 2021-08-11 14:03 | Outpatient (CLI) | payer MEDICARE, SELFPAY ==
--- NOTE | 2021-08-11 14:09 | CT_ITS ---
STUDY: LOW DOSE CT LUNG CANCER SCREENING REASON FOR EXAM: Female, 71 years old. HX SMOKING. Patient''s small 1 pack per day for 5 years. Former smoker. RADIATION DOSAGE (If Supplied By Facility): CTDIvol = ( 2.01 ) mGy, DLP = ( 66.70 ) mGycm TECHNIQUE: No contrast was administered. Low dose technique was utilized (average mAS-38 and kVp 120). 1.25 mm axial source images with a slice interval of 1.25-mm were reconstructed in lung windows. 2.5 mm axial source images with a slice interval of 2.5-mm were reconstructed in lung windows. 5.0 mm axial source images with a slice interval of 5.0-mm were reconstructed in soft tissue windows. Nodule measured using lung windows on PACS and/or independent workstation with automated measurement of minimum and maximum diameter. Nodule measurement reported as average diameter rounded to the nearest whole number. Growth is defined as an increase ins size of greater than 1.5 mm. COMPARISON: Comparison is made with prior study dated 08/17/2017. NODULES: There is a 5.2 mm pleural-based nodule in the left lower lobe laterally as seen on axial image #162. Linear densities are seen adjacent to this nodule. This most likely presents a focal area of scarring. Emphysema: Hyperinflation. Emphysematous changes. Scarring at the right lung apex. Minimal increased reticular nodular pattern in the anterior aspect of the right upper lobe as seen on axial image #110. This most likely represents focal area of scarring. Mild scarring at the left lung base as well. Endobronchial lesion: None Aorta: Atherosclerotic plaque calcification. Coronary arteries: Prior CABG Heart: Unremarkable Pulmonary artery: Unremarkable Mediastinal nodes: Small mediastinal lymph nodes. Other chest and abdominal findings: CT/Low Dose CT Lung Screening IMPRESSION: Lung-RADS category 2 - Continue annual screening with LDCT in 12 months. IMPORTANT NOTES FOR USE: ACR Lung-RADS Version 1.1 Assessment Categories Release Date: 2018 Category: Coded 0-4 bases on nodule(s) with highest degree of suspicion. Negative screen is defined as categories 1 and 2; a positive screen is defined as categories 3 and 4. Category 3 and 4A nodules that are unchanged on interval CT should be coded as category 2, and individuals returned to screening in 12 months. Category 4X: Category 3 or 4 nodules with additional imaging findings that increase the suspicion of lung cancer, such as spiculation, GGN that doubles in size in 1 year, enlarged lymph notes, etc. Category Modifiers: S (significant finding unrelated to lung cancer) Electronically Signed: Darryn Guerra MD at 8:41 EST ,
== END 2021-08-11 23:59 | disposition home or self-care (01) ==
LOC: CT 14:07
PROVIDERS: PCP Internal Medicine; Referring Provider Internal Medicine Pulmonary Disease; Visit Provider Internal Medicine Pulmonary Disease
DX: Z12.2 Encounter for screening for malignant neoplasm of respiratory organs (principal); R91.8 Other nonspecific abnormal finding of lung field; Z87.891 Personal history of nicotine dependence
CPT/HCPCS: 71271

== ENCOUNTER → 2022-03-02 | Outpatient (CLI) | payer MEDICARE, SELFPAY ==
--- NOTE | 2022-03-02 14:29 | CT_ITS ---
INDICATION: ABN FINDING EXAMINATION: CT CHEST WITH CONTRAST - CT Chest W/ Contrast Injection TECHNIQUE: Helically acquired images were obtained of the chest following IV contrast. A radiation dose optimization technique was used for this scan. IV Contrast dosage and agent: 100 mL of ISOVUE-300. COMPARISON: 08/11/2021. FINDINGS: LUNGS, PLEURA AND LARGE AIRWAYS: Mild bronchial wall thickening visualized, no evidence of endoluminal masses or lesions is seen. No masses, consolidation, or edema. No pleural effusion or thickening. No pneumothorax. The pleural-based left lower lobe opacity that was visualized on the prior study is not seen on today''s study. No evidence of parenchymal or pleural-based masses is seen. Subtle interstitial prominence is visualized. THYROID: Suggestion of subtle nodularities within the thyroid glands would recommend ultrasound evaluation with thyroid ultrasound. HEART AND PERICARDIUM: Heart size is normal. No pericardial effusion. VESSELS: Thoracic aorta is not dilated. No aortic dissection. Unremarkable opacification of the pulmonary vessels, no evidence of filling defect, no evidence of pulmonary embolism is seen. MEDIASTINUM AND GRACIELA: No mediastinal or hilar adenopathy. Esophagus is unremarkable. No hiatal hernia. UPPER ABDOMEN: No acute pathology. BONES: No suspicious lytic or blastic abnormality. CT/Chest WITH Contrast IMPRESSION: Unremarkable contrast enhanced CT of the chest. No evidence of parenchymal lung nodules or masses is seen. Lung RADS category 2, less than 1% probability of malignancy. Electronically Signed: Dixon Cordero MD at 16:51 EDT Reading Location ID and State: [facility] / [place] Tel , Service support ,
[2022-03-02 15:31] LABS: CREATININE FINGERSTICK < 0.9 mg/dL (0.55-1.02); EGFR FINGERSTICK > 60.0000 mL/min (>60)
== END | disposition home or self-care (01) ==
LOC: CT 14:27
PROVIDERS: PCP Internal Medicine; Referring Provider Internal Medicine Pulmonary Disease; Visit Provider Internal Medicine Pulmonary Disease
DX: R91.8 Other nonspecific abnormal finding of lung field (principal)
CPT/HCPCS: 71260; Q9967

== ENCOUNTER → 2022-07-01 | Outpatient (CLI) | payer MEDICARE, SELFPAY ==
--- NOTE | 2022-07-01 13:59 | CT_ITS ---
STUDY: CT ABDOMEN AND PELVIS WITHOUT CONTRAST REASON FOR EXAM: Female, 72 years old. Abdominal pain left RADIATION DOSAGE (If Supplied By Facility): CTDIvol = ( 8.69 ) mGy, DLP = ( 429.96 ) mGycm TECHNIQUE: Transaxial images were obtained from the dome of the diaphragm to the symphysis pubis without oral contrast, and without intravenous contrast. Sagittal and coronal images were reconstructed. Individualized dose optimization techniques were used for this CT. COMPARISON: Comparison is made with prior study dated 10/24/2018. FINDINGS: The visualized lung bases are unremarkable. Coronary artery calcifications. Normal liver. The patient is status post cholecystectomy. Normal spleen. Normal pancreas. Normal bilateral adrenal glands. Normal right kidney. Normal left kidney. There is a small hiatal hernia. Normal small intestine. There are scattered colonic diverticula consistent with diverticulosis. The appendix is visualized and appears normal. There is diffuse atherosclerotic calcification of the abdominal aorta and its major visceral branches, without a demonstrated aneurysm. Normal inferior vena cava. There is borderline retroperitoneal lymphadenopathy with enlarged nodes no greater than 10mm in the short axis diameter. Normal urinary bladder. There is a 2.9 cm x 2.4 cm hypodense mass in the right side of the pelvis adjacent to the right common iliac artery. This may represent focal adenopathy. This was not present on prior examination. This is seen on axial image #107 and coronal image #57. Normal abdominal wall. There are diffuse degenerative changes of the visualized lumbar spine. CT/Abdomen/Pel W ORAL Cont Only IMPRESSION: 2.9 cm x 2.4 cm hypodense mass in the right hemipelvis adjacent to the right common iliac artery. This most likely represents an area of adenopathy. Electronically Signed: Darryn Guerra MD at 14:57 EST ,
== END | disposition home or self-care (01) ==
LOC: CT 13:57
PROVIDERS: PCP Internal Medicine; Referring Provider Internal Medicine Gastroenterology; Visit Provider Internal Medicine Gastroenterology
DX: K44.9 Diaphragmatic hernia without obstruction or gangrene (principal); I70.0 Atherosclerosis of aorta; I25.10 Atherosclerotic heart disease of native coronary artery without angina pectoris; K57.30 Diverticulosis of large intestine without perforation or abscess without bleeding; R59.1 Generalized enlarged lymph nodes; R19.00 Intra-abdominal and pelvic swelling, mass and lump, unspecified site
CPT/HCPCS: 74176

== ENCOUNTER → 2022-08-03 | Outpatient (CLI) | payer MEDICARE, SELFPAY ==
--- NOTE | 2022-08-03 12:48 | CT_ITS ---
STUDY: CT CHEST WITHOUT CONTRAST REASON FOR EXAM: Female, 72 years old. PULM NODULE RADIATION DOSAGE (If Supplied By Facility): CTDIvol = ( 9.12 ) mGy, DLP = ( 341.97 ) mGycm TECHNIQUE: Transaxial imaging was performed without the administration of intravenous contrast material. Multiplanar coronal and sagittal images were reformatted. Individualized dose optimization techniques were used for this CT. COMPARISON: Comparison is made with prior study dated 03/02/2022. FINDINGS: CHEST Hyperinflation. Emphysematous changes. Mild scarring at the right lung apex. There is no demonstrated pleural abnormality. Sternal cerclage wires and vascular clips are present from a prior sternotomy and coronary artery bypass graft procedure (CABG). There are calcifications of the coronary arteries. There are multiple small lymph nodes within the mediastinum, which are normal in size and morphology most compatible with reactive lymph hyperplasia. Normal hilar regions. Normal unenhanced pulmonary arteries. There is atherosclerotic calcification of the aortic arch with tortuosity and elongation of the aortic arch and descending thoracic aorta. There are multi-level degenerative changes of the thoracic spine. The patient is status post cholecystectomy. CT/Chest without Contrast IMPRESSION: Hyperinflation and mild with emphysematous changes and scarring at the right lung apex. Electronically Signed: Darryn Guerra MD at 15:03 [facility] ,
== END | disposition home or self-care (01) ==
PROVIDERS: PCP Internal Medicine; Referring Provider Internal Medicine Pulmonary Disease; Visit Provider Internal Medicine Pulmonary Disease
DX: R91.1 Solitary pulmonary nodule (principal)
CPT/HCPCS: 71250

== ENCOUNTER 2022-08-12 08:40 | Day surgery (SDC) | payer MEDICARE, SELFPAY ==
[2022-08-12] VITALS (7 sets, daily range): BP systolic 85–127; BP diastolic 57–69; PULSE 65–74; RESP 16; TEMP 36.1–36.2; O2SAT 97–100; BMI 27.8
--- NOTE | 2022-08-12 | COLBX_PTH ---
PATIENT: IVY DRISCOLL LOC: EN U#:[id number] AGE/SX: 72/F ROOM: RE08/12/[address]: Dr. Viet Bird DO : 1950 BED: DIS: 08/12/2022 SPEC #: [id number] RECD: 08/12/22 14:03 STATUS: CRAIG SLOANE #: [id number] BRIAN: 08/12/22 00:[address]: Viet Bird DEPT: SURGICAL PATHOLOGY RECD BY: Greyson Murphy ENTERED: 08/12/22 14:03 SP TYPE: COLON BX OT DR: Dr. Amparo Fall MD Tissues: A - Cecum, NOS B - Ileum, NOS Procedures: Surgery Specimen Level IV HEADER OPERATION: Colonoscopy (MAC) PRE-OP DIAGNOSIS: Abdominal pain TISSUE SUBMITTED: A ? Cecal polyp biopsy, B ? Terminal ileum biopsy MICROSCOPIC DIAGNOSIS A. Cecal polyp, biopsy: Fragments of tubular adenoma. B. Terminal ileum, biopsy: Fragments of small intestinal mucosa, no pathologic diagnosis. MIRIAM:sonia 08/13/2022 MICROSCOPIC DESCRIPTION Slides are reviewed. GROSS DESCRIPTION A - Received in fixative is one container labeled with the patient's name and designated cecum polyp. The specimen consists of multiple irregular fragments of light brambila soft tissue that in aggregate measure 1.0 x 0.3 x 0.1 cm. The specimen is totally submitted in one cassette. B - Received in fixative is one container labeled with the patient's name and designated terminal ileum biopsy. The specimen consists of two irregular fragments of light brambila soft tissue that in aggregate measure 0.5 x 0.3 x 0.1 cm. The specimen is totally submitted in one cassette. / MIRIAM:sonia 08/12/2022 TC:1 CPT: 78843 x2
[2022-08-12] MEDS: Lactated Ringers 1,000 ML 15 ML IV (09:13)
--- NOTE | 2022-08-12 10:01 | PCM.HP.BLA ---
History and Physical Date of Admission: 08/12/22 72 F who presents to the office today for Initial consult. Tonya established with this clinic 06.10.22. Intermittent left abdominal pain has been present for the last 6-8 months with several days being present and several days of being absent. BM are regular with 1-2 a day without signs of constipation; vary between brown and black (possible iron intake). GI Hx diverticulosis, GERD PMH CHF, COPD, HTN, CAD s/p stent placement, dementia, CKD stage 3. PSH total hysterectomy; cholecystectomy US RUQ 10.23.14 hepatic measurement 13.5cm with fatty infiltration CT abd/pel 5..19 RUQ pain diverticulosis. ROS Const Constitutional: No anorexia, fatigue, fever(s), weight change or sleep problems Eyes Eyes: No change in vision ENT ENT: No abnormal hearing, difficulty swallowing, mouth lesions, tongue swelling or throat swelling Resp Respiratory: No cough or shortness of breath Cardio Cardiology: No chest pain at rest, chest pain with exertion, shortness of breath or dyspnea on exertion Gastro GI: No difficulty swallowing Genitourinary-Female: No difficulty urinating or burning urination Musc Musculoskeletal: No joint pain, joint swelling, muscle weakness or decreased muscle mass Skin Skin: No hair loss in leg, yellowing of the eye, itchy eyes, rash, skin ulcer or skin swelling Neuro Neurology: No abnormal hearing, abnormal movements, confusion, unsteady gait/balance or memory loss Psych Psychiatric: No anxiety, No confusion and No memory loss Endo Endocrine: No fatigue or weight change Aller/Imm Allergy/Immunologic: No itchy eyes, throat swelling or tongue swelling Seth/Lymp Hematologic/Lymphatic: No easy bleeding, easy bruising or enlarged lymph nodes Quality Reporting Tobacco Screening (CMS 138) Smoking Status: Former smoker Assessment and Plan Assessment and Plan (1) Abdominal pain: ?Status:?Chronic ?Plan: Differential diagnosis for abdominal pain does include a femoral hernia, subacute diverticulitis.? Colitis, internal hernia or inguinal hernia.? Patient states that the pain does not radiate and is constant in the left lower quadrant..? Also on the differential diagnosis is peptic ulcer disease , pancreatitis or adhesions ? ? ? Orders: Orders Abdomen WITH ORAL Cont Only Today R10.9 - Unspecified abdominal pain ? I have examined the patient and the H&P has been reviewed. There are no clinical changes since date of exam.
--- NOTE | 2022-08-12 10:45 | OP.COLON_ITS ---
Patient Name: Tonya Benton Procedure Date: 08/12/2022 10:05 AM Date of : 1950 Age: 72 Procedure: Colonoscopy Indications: Abdominal pain in the left lower quadrant, Abdominal pain in the right lower quadrant Providers: Viet Bird DO Medicines: Monitored Anesthesia Care Patient Profile: This is a 72 year old female. Refer to note in patient chart for documentation of history and physical. Last Colonoscopy: 3 years ago. Complications: No immediate complications. Procedure: Pre-Anesthesia Assessment: - Prior to the procedure, a History and Physical was performed, and patient medications and allergies were reviewed. The patient is competent. The risks and benefits of the procedure and the sedation options and risks were discussed with the patient. All questions were answered and informed consent was obtained. Patient identification and proposed procedure were verified by the physician in the pre-procedure area. Mental Status Examination: alert and oriented. Airway Examination: normal oropharyngeal airway and neck mobility. Respiratory Examination: clear to auscultation. CV Examination: normal. Prophylactic Antibiotics: The patient does not require prophylactic antibiotics. Prior Anticoagulants: The patient has taken no previous anticoagulant or antiplatelet agents. ASA Grade Assessment: II - A patient with mild systemic disease. After reviewing the risks and benefits, the patient was deemed in satisfactory condition to undergo the procedure. The anesthesia plan was to use monitored anesthesia care (MAC). Immediately prior to administration of medications, the patient was re-assessed for adequacy to receive sedatives. The heart rate, respiratory rate, oxygen saturations, blood pressure, adequacy of pulmonary ventilation, and response to care were monitored throughout the procedure. The physical status of the patient was re-assessed after the procedure. After I obtained informed consent, the scope was passed under direct vision. Throughout the procedure, the patient's blood pressure, pulse, and oxygen saturations were monitored continuously. The pediatric colonoscope was introduced through the anus and advanced to the terminal ileum. The colonoscopy was performed without difficulty. The patient tolerated the procedure well. The quality of the bowel preparation was good. Scope In: 10:18:13 AM Scope Withdrawal Time 0 hours 14 minutes 10 seconds Scope Out: 10:39:07 AM Total Procedure Duration Time 0 hours 20 minutes 54 seconds Findings: The perianal and digital rectal examinations were normal. A few small and large-mouthed diverticula were found in the recto-sigmoid colon and sigmoid colon. A 8 mm polyp was found in the cecum. The polyp was sessile. The polyp was removed with a cold snare. Resection and retrieval were complete. Verification of patient identification for the specimen was done. Estimated blood loss was minimal. A localized area of the terminal ileum was congested. Biopsies were taken with a cold forceps for histology. Verification of patient identification for the specimen was done. Estimated blood loss was minimal. Impression: - Diverticulosis in the recto-sigmoid colon and in the sigmoid colon. - One 8 mm polyp in the cecum, removed with a cold snare. Resected and retrieved. - Congested mucosa in the terminal ileum. Biopsied. Recommendation: - Discharge patient to home. - Resume previous diet. - Continue present medications. - Repeat colonoscopy in 5 years for surveillance. Procedure Code(s): --- Professional --- 49949, Colonoscopy, flexible; with removal of tumor(s), polyp(s), or other lesion(s) by snare technique 59932, 59, Colonoscopy, flexible; with biopsy, single or multiple CPT copyright 2017 [employer]. All rights reserved. The codes documented in this report are preliminary and upon bow stapler review may be revised to meet current compliance requirements. Viet Bird DO 08/12/2022 10:45:13 AM This report has been signed electronically. Number of Addenda: 0 Note Initiated On: 08/12/2022 10:05 AM
--- NOTE | 2022-08-12 10:45 | OP.CCLET_ITS ---
08/12/2022 Amparo Fall Re : Colonoscopy procedure for Tonya Benton Dear Eufemia This procedure was performed on Friday, August 12, 2022. My impressions and recommendations are as follows: Impressions : - Diverticulosis in the recto-sigmoid colon and in the sigmoid colon. - One 8 mm polyp in the cecum, removed with a cold snare. Resected and retrieved. - Congested mucosa in the terminal ileum. Biopsied. Recommendations : - Discharge patient to home. - Resume previous diet. - Continue present medications. - Repeat colonoscopy in 5 years for surveillance. My findings are described in the full procedure note, which is enclosed. If I can be of further assistance, please feel free to contact me at . Sincerely, Viet Bird, 08/12/2022 10:45:13 AM This report has been signed electronically.
== END 2022-08-12 11:40 | disposition home or self-care (01) ==
LOC: EN 08:41 → AC 08:42
PROVIDERS: PCP Internal Medicine; Referring Provider Internal Medicine; Visit Provider Internal Medicine Gastroenterology
PROC: 0DJD8ZZ Inspection of Lower Intestinal Tract, Via Natural or Artificial Opening Endoscopic (ICD-10-PCS; CPT 45378; principal; 2022-08-12 10:10)
DX: D12.0 Benign neoplasm of cecum (principal); I50.9 Heart failure, unspecified; I13.0 Hypertensive heart and chronic kidney disease with heart failure and stage 1 through stage 4 chronic kidney disease, or unspecified chronic kidney disease; N18.30 Chronic kidney disease, stage 3 unspecified; K63.89 Other specified diseases of intestine; K57.30 Diverticulosis of large intestine without perforation or abscess without bleeding; E78.00 Pure hypercholesterolemia, unspecified; I25.2 Old myocardial infarction; Z87.891 Personal history of nicotine dependence; Z95.1 Presence of aortocoronary bypass graft; Z79.82 Long term (current) use of aspirin; Z79.899 Other long term (current) drug therapy
CPT/HCPCS: 45380; 45385; 88305; J7120; J2405